=== PATIENT | male | born 1930 | race Caucasian/White ===

== ENCOUNTER 2016-08-25 14:31 | Inpatient (IN) | payer MEDICARE ==
[~2016-08-25] VITALS: Ht 188 cm; Wt 102.2 kg
--- NOTE | 2016-08-25 14:48 | EKG ---
[address] [address] Test Date: 2016-08-25 Test Time: 14:46:46 Pat Name: TANYA DELANEY Department: Room: Gender: M Director [employer]: : [id number] Requested By: KASANDRA HARRIS Order Number: [id number] Reading MD: Raymond Sandhu Measurements Intervals [place] Rate: 72 P: [place]: QRS: 31 QRSD: 80 T: 28 QT: 384 QTc: 422 Interpretive Statements SR NON-SPECIFIC ST/T CHANGES Electronically Signed On 09-02-2016 8:47:32 CDT by Raymond Sandhu
[2016-08-25 15:04] LABS: BASO # 0.2 x10^3/uL (0.0-0.2); BASO % 2 % (0-3); EOS # 0.6 x10^3/uL (0.0-0.7); EOS % 8 % (0-3); HEMATOCRIT 39.8 % (39.0-53.0); HEMOGLOBIN 13.2 g/dL (13.0-17.5); LYMPH # 2.1 x10^3/uL (1.0-4.8); LYMPH % 27 % (24-48); MEAN CORPUSCULAR HEMOGLOBIN 30 pg (25-35); MEAN CORPUSCULAR HGB CONC 33 g/dL (31-37); MEAN CORPUSCULAR VOLUME 89 fL (79-100); MONO # 0.8 x10^3/uL (0.0-1.1); MONO % 11 % (0-9); NEUT # 4.2 x10^3uL (1.8-7.7); NEUT % 53 % (31-73); PLATELET COUNT 173 x10^3/uL (140-400); RED BLOOD COUNT 4.48 x10^6/uL (4.30-5.70); RED CELL DISTRIBUTION WIDTH 14.6 % (11.5-14.5)
[2016-08-25 15:07] LABS: CALCIUM 8.7 mg/dL (8.5-10.1); CREATININE 1.2 mg/dL (0.7-1.3); GFR 57.5; POTASSIUM 4.2 mmol/L (3.5-5.1)
[2016-08-25 15:13] LABS: BACTERIA,URINE 0 /HPF (0-FEW); BILIRUBIN,URINE NEG (NEG); CLARITY,URINE CLEAR; COLOR,URINE YELLOW; GLUCOSE,URINE NEG (NEG); NITRITE,URINE NEG (NEG); RBC,URINE 0 /HPF (0-2); UROBILINOGEN,URINE 0.2 mg/dL (0.2 mg/dL); WBC,URINE RARE /HPF (0-4)
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
[2016-08-25 16:26] VITALS: BP 134/82
[2016-08-25] MEDS ORDERED: MAGN2400 PO (17:11)
[2016-08-25] MEDS ORDERED: MELA3TAB43 PO (17:11)
[2016-08-25] MEDS ORDERED: HYDR-2758 PO (17:11)
[2016-08-25] MEDS ORDERED: MEMA10TA PO (17:11)
[2016-08-25] MEDS ORDERED: ACET325T9 PO (17:11)
[2016-08-25] MEDS ORDERED: QUET25TA5 PO (17:11)
[2016-08-25] MEDS ORDERED: ASPI81TA50 PO (17:11)
[2016-08-25] MEDS ORDERED: LORA0.5T PO (17:11)
[2016-08-25] MEDS ORDERED: MAG HYDROX/AL HYDROX/SIMETH 30 ML ORAL.SUSP PO PRN (17:15)
[2016-08-25] MEDS ORDERED: METHYL SALICYLATE/MENTHOL TOPICAL OINTMENT 29GM TUBE. TP PRN (17:15)
[2016-08-25] MEDS ORDERED: ACETAMINOPHEN 325 MG TABLET PO PRN (18:15)
[2016-08-25] MEDS ORDERED: HYDROcodone/APAP 5/325MG 1 TAB TABLET PO PRN (18:15)
[2016-08-25] MEDS ORDERED: MAGNESIUM HYDROXIDE 2,400 MG/30 ML ORAL.SUSP. PO PRN (18:30)
--- NOTE | 2016-08-25 19:57 | PDOC ---
Exam Jesus Demential Exam: Jesus Note: Please also refer to the separate dictated note~for this date of service dictated separately.~Patient seen individually. Discussed the patient with Nursing staff reviewed the chart.~Reviewed interim history and current functioning. Reviewed vital signs,~Labs/ Radiology~and current medications noted below. Continue current treatment with the changes noted in the dictated addendum note Assessment: Vital Signs: Vital Signs Date Time Temp Pulse Resp B/P (MAP) Pulse Ox O2 Delivery O2 Flow Rate FiO2 08/25/16 16:26 97.6 93 18 134/82 (99) 97 Room Air Labs: Laboratory Tests Test 08/25/16 14:44 08/25/16 14:50 08/25/16 17:30 White Blood Count 8.0 x10^3/uL (4.0-11.0) Red Blood Count 4.48 x10^6/uL (4.30-5.70) Hemoglobin 13.2 g/dL (13.0-17.5) Hematocrit 39.8 % (39.0-53.0) Mean Corpuscular Volume 89 fL (79-100) Mean Corpuscular Hemoglobin 30 pg (25-35) Mean Corpuscular Hemoglobin Concent 33 g/dL (31-37) Red Cell Distribution Width 14.6 % (11.5-14.5) H Platelet Count 173 x10^3/uL (140-400) Neutrophils (%) (Auto) 53 % (31-73) Lymphocytes (%) (Auto) 27 % (24-48) Monocytes (%) (Auto) 11 % (0-9) H Eosinophils (%) (Auto) 8 % (0-3) H Basophils (%) (Auto) 2 % (0-3) Neutrophils # (Auto) 4.2 x10^3uL (1.8-7.7) Lymphocytes # (Auto) 2.1 x10^3/uL (1.0-4.8) Monocytes # (Auto) 0.8 x10^3/uL (0.0-1.1) Eosinophils # (Auto) 0.6 x10^3/uL (0.0-0.7) Basophils # (Auto) 0.2 x10^3/uL (0.0-0.2) Sodium Level 143 mmol/L (136-145) Potassium Level 4.2 mmol/L (3.5-5.1) Chloride Level 106 mmol/L (98-107) Carbon Dioxide Level 30 mmol/L (21-32) Anion Gap 7 (6-14) Blood Urea Nitrogen 18 mg/dL (8-26) Creatinine 1.2 mg/dL (0.7-1.3) Estimated GFR (Cockcroft-Gault) 57.5 Glucose Level 95 mg/dL (70-99) Calcium Level 8.7 mg/dL (8.5-10.1) Urine Collection Type Unknown Urine Color Yellow Urine Clarity Clear Urine pH 6.5 Urine Specific [place] 1.015 Urine Protein Neg (NEG-TRACE) Urine Glucose (UA) Neg mg/dL (NEG) Urine Ketones (Stick) Neg mg/dL (NEG) Urine Blood Neg (NEG) Urine Nitrite Neg (NEG) Urine Bilirubin Neg (NEG) Urine Urobilinogen Dipstick 0.2 mg/dL (0.2 mg/dL) Urine Leukocyte Esterase Neg (NEG) Urine RBC 0 /HPF (0-2) Urine WBC Rare /HPF (0-4) Urine Squamous Epithelial Cells None /LPF Urine Bacteria 0 /HPF (0-FEW) Urine Mucus Mod /LPF Magnesium Level 2.2 mg/dL (1.8-2.4) Current Medications: Meds: Current Medications Multi-Ingredient Ointment (Analgesic [place]) 1 sarah PRN QID PRN TP MUSCLE PAIN; Start 08/25/16 at 17:15 Al Hydroxide/Mg Hydroxide (Mylanta Plus Xs) 15 ml PRN AFTMEALHC PRN PO DYSPEPSIA; Start 08/25/16 at 17:15 Acetaminophen (Tylenol) 650 mg PRN Q4HRS PRN PO PAIN/FEVER; Start 08/25/16 at 18 :15 Aspirin (Aspirin Enteric Coated) 81 mg DAILY PO ; Start 08/26/16 at 09:00 Acetaminophen/ Hydrocodone Bitart (Lortab 5/325) 1 tab PRN Q6HRS PRN PO PAIN; Start 08/25/16 at 18:15 Lorazepam (Ativan) 0.5 mg PRN QID PRN PO ANXIETY / AGITATION; Start 08/25/16 at 18:15 Memantine (Namenda) 10 mg BID PO ; Start 08/25/16 at 21:00; Status UNV Memantine (Namenda) 10 mg BID PO ; Start 08/25/16 at 21:00 Quetiapine Fumarate (SEROquel) 25 mg HS PO ; Start 08/25/16 at 21:00 Magnesium Hydroxide (Milk Of Magnesia) 2,400 mg PRN QHS PRN PO CONSTIPATION; Start 08/25/16 at 18:30 Melatonin 3 mg QHS PO ; Start 08/25/16 at 21:00 Quetiapine Fumarate (SEROquel) 12.5 mg BID92 PO ; Start 08/26/16 at 09:00 Olanzapine (Zyprexa Zydis) 2.5 mg PRN Q2HR PRN PO PSYCHOSIS; Start 08/25/16 at 18:30 Active Scripts Active Reported Seroquel (Quetiapine Fumarate) 25 Mg Tablet 25 Mg PO HS Namenda (Memantine Hcl) 10 Mg Tablet 10 Mg PO BID Milk Of Magnesia (Magnesium Hydroxide) 2,400 Mg/10 Ml Oral.susp 2,400 Mg PO PRN QHS PRN Tylenol (Acetaminophen) 325 Mg Tablet 650 Mg PO PRN Q4HRS Namenda (Memantine Hcl) 10 Mg Tablet 10 Mg PO BID Melatonin 3 Mg Tab.rapdis 3 Mg PO HS Lorazepam 0.5 Mg Tablet 0.5 Mg PO PRN QID PRN Hydrocodone-Apap 5-325 (Hydrocodone Bit/Acetaminophen) 1 Each Tablet 1 Tab PO PRN Q6HRS PRN Aspir-Low (Aspirin) 81 Mg Tablet. 81 Mg PO DAILY Diagnosis: Problems: (1) Dementia with behavioral disturbance EFRAIN GOODEN MD August 25, 2016 19:57
[2016-08-25] MEDS: MEMANTINE 10 MG TABLET. PO SCH (20:45)
[2016-08-25] MEDS: MELATONIN 3 MG TABLET PO SCH (20:45)
[2016-08-25] MEDS: LORazepam 0.5 MG TABLET PO PRN (20:45)
[2016-08-25] MEDS: QUEtiapine 25 MG TABLET. PO SCH (20:46)
[2016-08-25] MEDS ORDERED: MEMANTINE 10 MG TABLET. PO SCH (21:00)
[2016-08-26 03:26] LABS: ALBUMIN 3.5 g/dL (3.4-5.0); DIRECT BILIRUBIN 0.1 mg/dL (0.0-0.2); TOTAL BILIRUBIN 0.4 mg/dL (0.2-1.0)
[2016-08-26 08:53] VITALS: BP 105/68
[2016-08-26] MEDS: ASPIRIN ENTERIC COATED 81 MG TABLET.DR. PO SCH (09:04)
[2016-08-26] MEDS: MEMANTINE 10 MG TABLET. PO SCH ×2 (09:04→20:41)
[2016-08-26] MEDS: QUEtiapine 25 MG TABLET. PO SCH ×3 (09:04→20:41)
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
[2016-08-26 16:02] LABS: THYROID STIM HORMONE (TSH) 4.688 uIU/mL (0.358-3.740)
[2016-08-26 16:17] VITALS: BP 114/72
[2016-08-26 17:08] LABS: T3 TOTAL 101 ng/dL (71-180); THYROXINE 5.7 ug/dL (4.5-12.0)
--- NOTE | 2016-08-26 20:15 | PDOC ---
Exam Jesus Demential Exam: Jesus Note: Please also refer to the separate dictated note~for this date of service dictated separately.~Patient seen individually. Discussed the patient with Nursing staff reviewed the chart.~Reviewed interim history and current functioning. Reviewed vital signs,~Labs/ Radiology~and current medications noted below. Continue current treatment with the changes noted in the dictated addendum note Assessment: Vital Signs: Vital Signs Date Time Temp Pulse Resp B/P (MAP) Pulse Ox O2 Delivery O2 Flow Rate FiO2 08/26/16 16:17 98.4 68 20 114/72 (86) 96 08/25/16 16:26 Room Air I&O Intake and Output 08/26/16 07:00 Intake Total 360 ml Balance 360 ml Intake Oral 360 ml Current Medications: Meds: Current Medications Multi-Ingredient Ointment (Analgesic [place]) 1 sarah PRN QID PRN TP MUSCLE PAIN; Start 08/25/16 at 17:15 Al Hydroxide/Mg Hydroxide (Mylanta Plus Xs) 15 ml PRN AFTMEALHC PRN PO DYSPEPSIA; Start 08/25/16 at 17:15 Acetaminophen (Tylenol) 650 mg PRN Q4HRS PRN PO PAIN/FEVER; Start 08/25/16 at 18 :15 Aspirin (Aspirin Enteric Coated) 81 mg DAILY PO Last administered on 08/26/16 09:04; Start 08/26/16 at 09:00 Acetaminophen/ Hydrocodone Bitart (Lortab 5/325) 1 tab PRN Q6HRS PRN PO PAIN; Start 08/25/16 at 18:15 Lorazepam (Ativan) 0.5 mg PRN QID PRN PO ANXIETY / AGITATION Last administered on 08/25/16 20:45; Start 08/25/16 at 18:15 Memantine (Namenda) 10 mg BID PO ; Start 08/25/16 at 21:00; Status UNV Memantine (Namenda) 10 mg BID PO Last administered on 08/26/16 09:04; Start 08/25/16 at 21:00 Quetiapine Fumarate (SEROquel) 25 mg HS PO Last administered on 08/25/16 20:46 ; Start 08/25/16 at 21:00 Magnesium Hydroxide (Milk Of Magnesia) 2,400 mg PRN QHS PRN PO CONSTIPATION Last administered on 08/25/16 20:49; Start 08/25/16 at 18:30 Melatonin 3 mg QHS PO Last administered on 08/25/16 20:45; Start 08/25/16 at 21: 00 Quetiapine Fumarate (SEROquel) 12.5 mg BID92 PO Last administered on 08/26/16 13:30; Start 08/26/16 at 09:00 Olanzapine (Zyprexa Zydis) 2.5 mg PRN Q2HR PRN PO PSYCHOSIS; Start 08/25/16 at 18:30 Sertraline HCl (Zoloft) 25 mg DAILY PO ; Start 08/27/16 at 09:00 Active Scripts Active Reported Seroquel (Quetiapine Fumarate) 25 Mg Tablet 25 Mg PO HS Namenda (Memantine Hcl) 10 Mg Tablet 10 Mg PO BID Milk Of Magnesia (Magnesium Hydroxide) 2,400 Mg/10 Ml Oral.susp 2,400 Mg PO PRN QHS PRN Tylenol (Acetaminophen) 325 Mg Tablet 650 Mg PO PRN Q4HRS Namenda (Memantine Hcl) 10 Mg Tablet 10 Mg PO BID Melatonin 3 Mg Tab.rapdis 3 Mg PO HS Lorazepam 0.5 Mg Tablet 0.5 Mg PO PRN QID PRN Hydrocodone-Apap 5-325 (Hydrocodone Bit/Acetaminophen) 1 Each Tablet 1 Tab PO PRN Q6HRS PRN Aspir-Low (Aspirin) 81 Mg Tablet.dr 81 Mg PO DAILY Diagnosis: Problems: (1) Dementia with behavioral disturbance (2) Anxiety disorder (3) 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
[2016-08-26] MEDS: MELATONIN 3 MG TABLET PO SCH (20:41)
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
[2016-08-27 02:31] LABS: HEMOGLOBIN A1C 5.4 % (4.8-5.6)
[2016-08-27 06:07] VITALS: BP 135/62
[2016-08-27] MEDS: MEMANTINE 10 MG TABLET. PO SCH ×2 (08:44→20:07)
[2016-08-27] MEDS: QUEtiapine 25 MG TABLET. PO SCH ×3 (08:44→20:08)
[2016-08-27] MEDS: ASPIRIN ENTERIC COATED 81 MG TABLET.DR. PO SCH (08:44)
[2016-08-27] MEDS ORDERED: SERTRALINE 25 MG TABLET. PO SCH (09:00)
[2016-08-27 14:55] VITALS: BP 123/75
[2016-08-27] MEDS: MELATONIN 3 MG TABLET PO SCH (20:07)
--- NOTE | 2016-08-27 21:13 | PDOC ---
Exam Jesus Demential Exam: Jesus Note: Please also refer to the separate dictated note~for this date of service dictated separately.~Patient seen individually. Discussed the patient with Nursing staff reviewed the chart.~Reviewed interim history and current functioning. Reviewed vital signs,~Labs/ Radiology~and current medications noted below. Continue current treatment with the changes noted in the dictated addendum note Assessment: Vital Signs: Vital Signs Date Time Temp Pulse Resp B/P (MAP) Pulse Ox O2 Delivery O2 Flow Rate FiO2 08/27/16 14:55 97.3 79 18 123/75 (91) 90 08/25/16 16:26 Room Air I&O Intake and Output 08/27/16 07:00 Intake Total 840 ml Balance 840 ml Intake Oral 840 ml # Bowel Movements 1 Current Medications: Meds: Current Medications Multi-Ingredient Ointment (Analgesic [place]) 1 sarah PRN QID PRN TP MUSCLE PAIN; Start 08/25/16 at 17:15 Al Hydroxide/Mg Hydroxide (Mylanta Plus Xs) 15 ml PRN AFTMEALHC PRN PO DYSPEPSIA; Start 08/25/16 at 17:15 Acetaminophen (Tylenol) 650 mg PRN Q4HRS PRN PO PAIN/FEVER; Start 08/25/16 at 18 :15 Aspirin (Aspirin Enteric Coated) 81 mg DAILY PO Last administered on 08/27/16 08:44; Start 08/26/16 at 09:00 Acetaminophen/ Hydrocodone Bitart (Lortab 5/325) 1 tab PRN Q6HRS PRN PO PAIN; Start 08/25/16 at 18:15 Lorazepam (Ativan) 0.5 mg PRN QID PRN PO ANXIETY / AGITATION Last administered on 08/25/16 20:45; Start 08/25/16 at 18:15 Memantine (Namenda) 10 mg BID PO ; Start 08/25/16 at 21:00; Status UNV Memantine (Namenda) 10 mg BID PO Last administered on 08/27/16 20:07; Start 08/25/16 at 21:00 Quetiapine Fumarate (SEROquel) 25 mg HS PO Last administered on 08/27/16 20:08 ; Start 08/25/16 at 21:00 Magnesium Hydroxide (Milk Of Magnesia) 2,400 mg PRN QHS PRN PO CONSTIPATION Last administered on 08/25/16 20:49; Start 08/25/16 at 18:30 Melatonin 3 mg QHS PO Last administered on 08/27/16 20:07; Start 08/25/16 at 21: 00 Quetiapine Fumarate (SEROquel) 12.5 mg BID92 PO Last administered on 08/27/16 13:00; Start 08/26/16 at 09:00 Olanzapine (Zyprexa Zydis) 2.5 mg PRN Q2HR PRN PO PSYCHOSIS; Start 08/25/16 at 18:30 Sertraline HCl (Zoloft) 25 mg DAILY PO Last administered on 08/27/16 08:45; Start 08/27/16 at 09:00; Stop 08/27/16 at 18:17; Status DC Sertraline HCl (Zoloft) 50 mg DAILY PO ; Start 08/28/16 at 09:00 Active Scripts Active Reported Seroquel (Quetiapine Fumarate) 25 Mg Tablet 25 Mg PO HS Namenda (Memantine Hcl) 10 Mg Tablet 10 Mg PO BID Milk Of Magnesia (Magnesium Hydroxide) 2,400 Mg/10 Ml Oral.susp 2,400 Mg PO PRN QHS PRN Tylenol (Acetaminophen) 325 Mg Tablet 650 Mg PO PRN Q4HRS Namenda (Memantine Hcl) 10 Mg Tablet 10 Mg PO BID Melatonin 3 Mg Tab.rapdis 3 Mg PO HS Lorazepam 0.5 Mg Tablet 0.5 Mg PO PRN QID PRN Hydrocodone-Apap 5-325 (Hydrocodone Bit/Acetaminophen) 1 Each Tablet 1 Tab PO PRN Q6HRS PRN Aspir-Low (Aspirin) 81 Mg Tablet.dr 81 Mg PO DAILY Diagnosis: Problems: (1) Dementia with behavioral disturbance (2) Anxiety disorder (3) Dementia in Alzheimer's disease with delusions (4) Dementia in Alzheimer's disease with depression (5) Dementia, vascular, with delusions (6) Dementia, vascular, with depression (7) Impulse control disorder EFRAIN GOODEN MD August 27, 2016 21:13
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
[2016-08-28 07:05] VITALS: BP 117/58
[2016-08-28] MEDS: QUEtiapine 25 MG TABLET. PO SCH ×4 (08:42→19:43)
[2016-08-28] MEDS: MEMANTINE 10 MG TABLET. PO SCH ×2 (08:42→19:43)
[2016-08-28] MEDS: ASPIRIN ENTERIC COATED 81 MG TABLET.DR. PO SCH (08:42)
[2016-08-28] MEDS: SERTRALINE 50 MG TABLET. PO SCH (08:44)
[2016-08-28 15:58] VITALS: BP 138/69
[2016-08-28] MEDS: MELATONIN 3 MG TABLET PO SCH (19:43)
--- NOTE | 2016-08-28 22:05 | PDOC ---
Exam Jesus Demential Exam: Jesus Note: Please also refer to the separate dictated note~for this date of service dictated separately.~Patient seen individually. Discussed the patient with Nursing staff reviewed the chart.~Reviewed interim history and current functioning. Reviewed vital signs,~Labs/ Radiology~and current medications noted below. Continue current treatment with the changes noted in the dictated addendum note Assessment: Vital Signs: Vital Signs Date Time Temp Pulse Resp B/P (MAP) Pulse Ox O2 Delivery O2 Flow Rate FiO2 08/28/16 15:58 98.1 65 20 138/69 (92) 95 08/25/16 16:26 Room Air I&O Intake and Output 08/28/16 07:00 Intake Total 1320 ml Balance 1320 ml Intake Oral 1320 ml Current Medications: Meds: Current Medications Multi-Ingredient Ointment (Analgesic [place]) 1 sarah PRN QID PRN TP MUSCLE PAIN; Start 08/25/16 at 17:15 Al Hydroxide/Mg Hydroxide (Mylanta Plus Xs) 15 ml PRN AFTMEALHC PRN PO DYSPEPSIA; Start 08/25/16 at 17:15 Acetaminophen (Tylenol) 650 mg PRN Q4HRS PRN PO PAIN/FEVER; Start 08/25/16 at 18 :15 Aspirin (Aspirin Enteric Coated) 81 mg DAILY PO Last administered on 08/28/16 08:42; Start 08/26/16 at 09:00 Acetaminophen/ Hydrocodone Bitart (Lortab 5/325) 1 tab PRN Q6HRS PRN PO PAIN; Start 08/25/16 at 18:15 Lorazepam (Ativan) 0.5 mg PRN QID PRN PO ANXIETY / AGITATION Last administered on 08/25/16 20:45; Start 08/25/16 at 18:15 Memantine (Namenda) 10 mg BID PO ; Start 08/25/16 at 21:00; Status UNV Memantine (Namenda) 10 mg BID PO Last administered on 08/28/16 19:43; Start at 21:00 Quetiapine Fumarate (SEROquel) 25 mg HS PO Last administered on 08/28/16 19:43 ; Start 08/25/16 at 21:00 Magnesium Hydroxide (Milk Of Magnesia) 2,400 mg PRN QHS PRN PO CONSTIPATION Last administered on 08/25/16 20:49; Start 08/25/16 at 18:30 Melatonin 3 mg QHS PO Last administered on 08/28/16 19:43; Start 08/25/16 at 21 :00 Quetiapine Fumarate (SEROquel) 12.5 mg BID92 PO Last administered on 08/28/16 14:05; Start 08/26/16 at 09:00; Stop 08/28/16 at 18:34; Status DC Olanzapine (Zyprexa Zydis) 2.5 mg PRN Q2HR PRN PO PSYCHOSIS; Start 08/25/16 at 18:30 Sertraline HCl (Zoloft) 25 mg DAILY PO Last administered on 08/27/16 08:45; Start 08/27/16 at 09:00; Stop 08/27/16 at 18:17; Status DC Sertraline HCl (Zoloft) 50 mg DAILY PO Last administered on 08/28/16 08:44; Start 08/28/16 at 09:00 Quetiapine Fumarate (SEROquel) 12.5 mg TID PO Last administered on 08/28/16 19 :43; Start 08/28/16 at 21:00 Active Scripts Active Reported Seroquel (Quetiapine Fumarate) 25 Mg Tablet 25 Mg PO HS Namenda (Memantine Hcl) 10 Mg Tablet 10 Mg PO BID Milk Of Magnesia (Magnesium Hydroxide) 2,400 Mg/10 Ml Oral.susp 2,400 Mg PO PRN QHS PRN Tylenol (Acetaminophen) 325 Mg Tablet 650 Mg PO PRN Q4HRS Namenda (Memantine Hcl) 10 Mg Tablet 10 Mg PO BID Melatonin 3 Mg Tab.rapdis 3 Mg PO HS Lorazepam 0.5 Mg Tablet 0.5 Mg PO PRN QID PRN Hydrocodone-Apap 5-325 (Hydrocodone Bit/Acetaminophen) 1 Each Tablet 1 Tab PO PRN Q6HRS PRN Aspir-Low (Aspirin) 81 Mg Tablet. 81 Mg PO DAILY EFRAIN GOODEN MD August 28, 2016 22:05
[2016-08-29 06:34] VITALS: BP 112/55
[2016-08-29] MEDS: SERTRALINE 50 MG TABLET. PO SCH (08:50)
[2016-08-29] MEDS: MEMANTINE 10 MG TABLET. PO SCH ×2 (08:50→19:26)
[2016-08-29] MEDS: ASPIRIN ENTERIC COATED 81 MG TABLET.DR. PO SCH (08:50)
[2016-08-29] MEDS: QUEtiapine 25 MG TABLET. PO SCH ×4 (08:51→19:27)
--- NOTE | 2016-08-29 09:41 | PN ---
DATE: 08/27/2016 PSYCHIATRIC PROGRESS NOTE This is a late entry 08/27/2016, covers elements not covered in my initial note. SUBJECTIVE: The patient was agitated once per nursing report, pushing aggressively towards another patient, he has been doing better after that. REVIEW OF SYSTEMS: No CV, , pulmonary, eye, ENT system symptoms on review. Reliability poor. MENTAL STATUS EXAM: Oriented to himself. Insight, judgment, recent and remote memory, attention, concentration, fund of knowledge poor, consistent with his diagnosis mentioned in my initial note. LABORATORY DATA: Reviewed. PLAN: Increase Zoloft to 50 mg a day. Continue Namenda, Seroquel, melatonin, along with Zyprexa p.r.n. and Ativan p.r.n. Adjust as clinically indicated. MAN Sidnhu GOODEN MD DR: NOLA/juan f JOB#: [id number] / [id number]
[2016-08-29 16:22] VITALS: BP 115/60
[2016-08-29] MEDS: MELATONIN 3 MG TABLET PO SCH (19:26)
--- NOTE | 2016-08-29 21:08 | PDOC ---
Exam Jesus Demential Exam: Jesus Note: Please also refer to the separate dictated note~for this date of service dictated separately.~Patient seen individually. Discussed the patient with Nursing staff reviewed the chart.~Reviewed interim history and current functioning. Reviewed vital signs,~Labs/ Radiology~and current medications noted below. Continue current treatment with the changes noted in the dictated addendum note Assessment: Vital Signs: Vital Signs Date Time Temp Pulse Resp B/P (MAP) Pulse Ox O2 Delivery O2 Flow Rate FiO2 08/29/16 16:22 97.4 62 19 115/60 (78) 97 08/25/16 16:26 Room Air I&O Intake and Output 08/29/16 07:00 Intake Total 1200 ml Balance 1200 ml Intake Oral 1200 ml Current Medications: Meds: Current Medications Multi-Ingredient Ointment (Analgesic [place]) 1 sarah PRN QID PRN TP MUSCLE PAIN; Start 08/25/16 at 17:15 Al Hydroxide/Mg Hydroxide (Mylanta Plus Xs) 15 ml PRN AFTMEALHC PRN PO DYSPEPSIA; Start 08/25/16 at 17:15 Acetaminophen (Tylenol) 650 mg PRN Q4HRS PRN PO PAIN/FEVER; Start 08/25/16 at 18 :15 Aspirin (Aspirin Enteric Coated) 81 mg DAILY PO Last administered on 08/29/16 08:50; Start 08/26/16 at 09:00 Acetaminophen/ Hydrocodone Bitart (Lortab 5/325) 1 tab PRN Q6HRS PRN PO PAIN; Start 08/25/16 at 18:15 Lorazepam (Ativan) 0.5 mg PRN QID PRN PO ANXIETY / AGITATION Last administered on 08/25/16 20:45; Start 08/25/16 at 18:15 Memantine (Namenda) 10 mg BID PO ; Start 08/25/16 at 21:00; Status UNV Memantine (Namenda) 10 mg BID PO Last administered on 08/29/16 19:26; Start at 21:00 Quetiapine Fumarate (SEROquel) 25 mg HS PO Last administered on 08/29/16 19:26 ; Start 08/25/16 at 21:00 Magnesium Hydroxide (Milk Of Magnesia) 2,400 mg PRN QHS PRN PO CONSTIPATION Last administered on 08/25/16 20:49; Start 08/25/16 at 18:30 Melatonin 3 mg QHS PO Last administered on 08/29/16 19:26; Start 08/25/16 at 21 :00 Quetiapine Fumarate (SEROquel) 12.5 mg BID92 PO Last administered on 08/28/16 14:05; Start 08/26/16 at 09:00; Stop 08/28/16 at 18:34; Status DC Olanzapine (Zyprexa Zydis) 2.5 mg PRN Q2HR PRN PO PSYCHOSIS; Start 08/25/16 at 18:30 Sertraline HCl (Zoloft) 25 mg DAILY PO Last administered on 08/27/16 08:45; Start 08/27/16 at 09:00; Stop 08/27/16 at 18:17; Status DC Sertraline HCl (Zoloft) 50 mg DAILY PO Last administered on 08/29/16 08:50; Start 08/28/16 at 09:00 Quetiapine Fumarate (SEROquel) 12.5 mg TID PO Last administered on 08/29/16 19 :27; Start 08/28/16 at 21:00 Active Scripts Active Reported Seroquel (Quetiapine Fumarate) 25 Mg Tablet 25 Mg PO HS Namenda (Memantine Hcl) 10 Mg Tablet 10 Mg PO BID Milk Of Magnesia (Magnesium Hydroxide) 2,400 Mg/10 Ml Oral.susp 2,400 Mg PO PRN QHS PRN Tylenol (Acetaminophen) 325 Mg Tablet 650 Mg PO PRN Q4HRS Namenda (Memantine Hcl) 10 Mg Tablet 10 Mg PO BID Melatonin 3 Mg Tab.rapdis 3 Mg PO HS Lorazepam 0.5 Mg Tablet 0.5 Mg PO PRN QID PRN Hydrocodone-Apap 5-325 (Hydrocodone Bit/Acetaminophen) 1 Each Tablet 1 Tab PO PRN Q6HRS PRN Aspir-Low (Aspirin) 81 Mg Tablet. 81 Mg PO DAILY EFRAIN GOODEN MD August 29, 2016 21:08
[2016-08-30 06:45] VITALS: BP 134/86
[2016-08-30] MEDS: MEMANTINE 10 MG TABLET. PO SCH ×2 (09:09→21:12)
[2016-08-30] MEDS: ASPIRIN ENTERIC COATED 81 MG TABLET.DR. PO SCH (09:09)
[2016-08-30] MEDS: QUEtiapine 25 MG TABLET. PO SCH ×4 (09:09→21:14)
[2016-08-30] MEDS: SERTRALINE 50 MG TABLET. PO SCH (09:09)
[2016-08-30 15:39] VITALS: BP 149/83
--- NOTE | 2016-08-30 21:09 | PDOC ---
Exam Jesus Demential Exam: Jesus Note: Please also refer to the separate dictated note~for this date of service dictated separately.~Patient seen individually. Discussed the patient with Nursing staff reviewed the chart.~Reviewed interim history and current functioning. Reviewed vital signs,~Labs/ Radiology~and current medications noted below. Continue current treatment with the changes noted in the dictated addendum note Assessment: Vital Signs: Vital Signs Date Time Temp Pulse Resp B/P (MAP) Pulse Ox O2 Delivery O2 Flow Rate FiO2 08/30/16 18:48 99 08/30/16 15:39 97.4 61 18 149/83 (105) 08/25/16 16:26 Room Air I&O Intake and Output 08/30/16 07:00 Intake Total 1080 ml Balance 1080 ml Intake Oral 1080 ml # Voids 2 Current Medications: Meds: Current Medications Multi-Ingredient Ointment (Analgesic [place]) 1 sarah PRN QID PRN TP MUSCLE PAIN; Start 08/25/16 at 17:15 Al Hydroxide/Mg Hydroxide (Mylanta Plus Xs) 15 ml PRN AFTMEALHC PRN PO DYSPEPSIA; Start 08/25/16 at 17:15 Acetaminophen (Tylenol) 650 mg PRN Q4HRS PRN PO PAIN/FEVER; Start 08/25/16 at 18 :15 Aspirin (Aspirin Enteric Coated) 81 mg DAILY PO Last administered on 08/30/16 09:09; Start 08/26/16 at 09:00 Acetaminophen/ Hydrocodone Bitart (Lortab 5/325) 1 tab PRN Q6HRS PRN PO PAIN Last administered on 08/30/16 17:34; Start 08/25/16 at 18:15 Lorazepam (Ativan) 0.5 mg PRN QID PRN PO ANXIETY / AGITATION Last administered on 08/25/16 20:45; Start 08/25/16 at 18:15 Memantine (Namenda) 10 mg BID PO ; Start 08/25/16 at 21:00; Status UNV Memantine (Namenda) 10 mg BID PO Last administered on 08/30/16 09:09; Start at 21:00 Quetiapine Fumarate (SEROquel) 25 mg HS PO Last administered on 08/29/16 19:26 ; Start 08/25/16 at 21:00 Magnesium Hydroxide (Milk Of Magnesia) 2,400 mg PRN QHS PRN PO CONSTIPATION Last administered on 08/25/16 20:49; Start 08/25/16 at 18:30 Melatonin 3 mg QHS PO Last administered on 08/29/16 19:26; Start 08/25/16 at 21 :00 Quetiapine Fumarate (SEROquel) 12.5 mg BID92 PO Last administered on 08/28/16 14:05; Start 08/26/16 at 09:00; Stop 08/28/16 at 18:34; Status DC Olanzapine (Zyprexa Zydis) 2.5 mg PRN Q2HR PRN PO PSYCHOSIS; Start 08/25/16 at 18:30 Sertraline HCl (Zoloft) 25 mg DAILY PO Last administered on 08/27/16 08:45; Start 08/27/16 at 09:00; Stop 08/27/16 at 18:17; Status DC Sertraline HCl (Zoloft) 50 mg DAILY PO Last administered on 08/30/16 09:09; Start 08/28/16 at 09:00 Quetiapine Fumarate (SEROquel) 12.5 mg TID PO Last administered on 08/30/16 14 :23; Start 08/28/16 at 21:00 Vitamin D (Vitamin D3) 50,000 unit WEEKLY PO ; Start 08/31/16 at 09:00 Active Scripts Active Reported Seroquel (Quetiapine Fumarate) 25 Mg Tablet 25 Mg PO HS Namenda (Memantine Hcl) 10 Mg Tablet 10 Mg PO BID Milk Of Magnesia (Magnesium Hydroxide) 2,400 Mg/10 Ml Oral.susp 2,400 Mg PO PRN QHS PRN Tylenol (Acetaminophen) 325 Mg Tablet 650 Mg PO PRN Q4HRS Namenda (Memantine Hcl) 10 Mg Tablet 10 Mg PO BID Melatonin 3 Mg Tab.rapdis 3 Mg PO HS Lorazepam 0.5 Mg Tablet 0.5 Mg PO PRN QID PRN Hydrocodone-Apap 5-325 (Hydrocodone Bit/Acetaminophen) 1 Each Tablet 1 Tab PO PRN Q6HRS PRN Aspir-Low (Aspirin) 81 Mg Tablet. 81 Mg PO DAILY EFRAIN GOODEN MD August 30, 2016 21:09
[2016-08-30] MEDS: MELATONIN 3 MG TABLET PO SCH (21:13)
[2016-08-31 06:28] VITALS: BP 128/69
[2016-08-31 07:14] LABS: BASO # 0.1 x10^3/uL (0.0-0.2); BASO % 1 % (0-3); EOS # 0.5 x10^3/uL (0.0-0.7); EOS % 7 % (0-3); HEMATOCRIT 40.6 % (39.0-53.0); HEMOGLOBIN 13.3 g/dL (13.0-17.5); LYMPH # 2.2 x10^3/uL (1.0-4.8); LYMPH % 29 % (24-48); MEAN CORPUSCULAR HEMOGLOBIN 29 pg (25-35); MEAN CORPUSCULAR HGB CONC 33 g/dL (31-37); MEAN CORPUSCULAR VOLUME 89 fL (79-100); MONO # 0.7 x10^3/uL (0.0-1.1); MONO % 10 % (0-9); NEUT # 4.1 x10^3uL (1.8-7.7); NEUT % 54 % (31-73); PLATELET COUNT 158 x10^3/uL (140-400); RED BLOOD COUNT 4.58 x10^6/uL (4.30-5.70); RED CELL DISTRIBUTION WIDTH 14.6 % (11.5-14.5); WHITE BLOOD COUNT 7.6 x10^3/uL (4.0-11.0)
[2016-08-31 07:43] LABS: ALBUMIN 3.6 g/dL (3.4-5.0); CALCIUM 8.8 mg/dL (8.5-10.1); CREATININE 1.1 mg/dL (0.7-1.3); GFR 63.6; MAGNESIUM 2.3 mg/dL (1.8-2.4); POTASSIUM 4.3 mmol/L (3.5-5.1); TOTAL BILIRUBIN 0.5 mg/dL (0.2-1.0); TOTAL PROTEIN 7.3 g/dL (6.4-8.2)
[2016-08-31] MEDS: ASPIRIN ENTERIC COATED 81 MG TABLET.DR. PO SCH (08:58)
[2016-08-31] MEDS: MEMANTINE 10 MG TABLET. PO SCH ×2 (08:58→21:23)
[2016-08-31] MEDS: QUEtiapine 25 MG TABLET. PO SCH ×4 (08:58→21:39)
[2016-08-31] MEDS: SERTRALINE 50 MG TABLET. PO SCH (08:58)
[2016-08-31] MEDS: CHOLECALCIFEROL (VITAMIN D3) 50,000 UNIT CAPSULE PO SCH (08:59)
--- NOTE | 2016-08-31 09:01 | PN ---
DATE: 08/28/2016 PSYCHIATRIC PROGRESS NOTE This is a late entry for 08/28/2016, cover elements not covered in my initial note. SUBJECTIVE: The patient remains confused, has been quiet, at times agitated with peers if he does have personal space. REVIEW OF SYSTEMS: No CV, , pulmonary, eye, ENT system symptoms on review. Reliability poor. MENTAL STATUS EXAM: Oriented to himself. Insight, judgment, recent and remote memory, attention, concentration, fund of knowledge poor, consistent with his diagnosis mentioned in my initial note. PLAN: Continue psychotropics mentioned in my initial note except increase the Seroquel from 12.5 mg b.i.d. to 12.5 mg t.i.d. Adjust further as clinically indicated. MAN Sindhu GOODEN MD DR: NOLA/juan f JOB#: [id number] / [id number]
--- NOTE | 2016-08-31 09:07 | PN ---
DATE: 08/29/2016 PSYCHIATRIC PROGRESS NOTE This is late entry of 08/29/2016, covers elements not covered in my initial note. SUBJECTIVE: The patient was staffed at treatment team meeting with the entire team and the patient's daughter, Grisel attended. I met with the patient individually as well, reviewed his history at length, diagnosis, current medications, progress. Sleeping about 6 hours. Appetite 100%. No CV, , pulmonary, eye, ENT system symptoms on review. Reviewed his history where he gets extremely agitated. 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 REVIEW OF SYSTEMS: No CV, , pulmonary, eye, ENT system symptoms on review. Reliability poor. MENTAL STATUS EXAMINATION: Oriented to himself. Insight, judgment, recent and remote memory, attention, concentration, fund of knowledge poor, consistent with his diagnosis mentioned in my initial note. PLAN: Continue Namenda 10 b.i.d., Seroquel 12.5 t.i.d., melatonin 3 mg at bedtime, Seroquel 25 at bedtime, Ativan p.r.n., Zyprexa p.r.n., Zoloft 50 mg a day, may need to be increased in due course. MAN Sindhu GOODEN MD DR: NOLA/juan f JOB#: [id number] / [id number]
[2016-08-31] MEDS ORDERED: CHOL500021 PO (11:49)
[2016-08-31 16:08] VITALS: BP 130/84
--- NOTE | 2016-08-31 20:56 | PDOC ---
Exam Jesus Demential Exam: Jesus Note: Please also refer to the separate dictated note~for this date of service dictated separately.~Patient seen individually. Discussed the patient with Nursing staff reviewed the chart.~Reviewed interim history and current functioning. Reviewed vital signs,~Labs/ Radiology~and current medications noted below. Continue current treatment with the changes noted in the dictated addendum note Assessment: Vital Signs: Vital Signs Date Time Temp Pulse Resp B/P (MAP) Pulse Ox O2 Delivery O2 Flow Rate FiO2 08/31/16 16:08 97.7 69 18 130/84 (99) 96 08/25/16 16:26 Room Air I&O Intake and Output 08/31/16 07:00 Intake Total 960 ml Balance 960 ml Intake Oral 960 ml # Voids 1 Labs: Laboratory Tests Test 08/31/16 06:48 White Blood Count 7.6 x10^3/uL (4.0-11.0) Red Blood Count 4.58 x10^6/uL (4.30-5.70) Hemoglobin 13.3 g/dL (13.0-17.5) Hematocrit 40.6 % (39.0-53.0) Mean Corpuscular Volume 89 fL (79-100) Mean Corpuscular Hemoglobin 29 pg (25-35) Mean Corpuscular Hemoglobin Concent 33 g/dL (31-37) Red Cell Distribution Width 14.6 % (11.5-14.5) H Platelet Count 158 x10^3/uL (140-400) Neutrophils (%) (Auto) 54 % (31-73) Lymphocytes (%) (Auto) 29 % (24-48) Monocytes (%) (Auto) 10 % (0-9) H Eosinophils (%) (Auto) 7 % (0-3) H Basophils (%) (Auto) 1 % (0-3) Neutrophils # (Auto) 4.1 x10^3uL (1.8-7.7) Lymphocytes # (Auto) 2.2 x10^3/uL (1.0-4.8) Monocytes # (Auto) 0.7 x10^3/uL (0.0-1.1) Eosinophils # (Auto) 0.5 x10^3/uL (0.0-0.7) Basophils # (Auto) 0.1 x10^3/uL (0.0-0.2) Sodium Level 145 mmol/L (136-145) Potassium Level 4.3 mmol/L (3.5-5.1) Chloride Level 107 mmol/L (98-107) Carbon Dioxide Level 27 mmol/L (21-32) Anion Gap 11 (6-14) Blood Urea Nitrogen 19 mg/dL (8-26) Creatinine 1.1 mg/dL (0.7-1.3) Estimated GFR (Cockcroft-Gault) 63.6 BUN/Creatinine Ratio 17 (6-20) Glucose Level 91 mg/dL (70-99) Calcium Level 8.8 mg/dL (8.5-10.1) Magnesium Level 2.3 mg/dL (1.8-2.4) Total Bilirubin 0.5 mg/dL (0.2-1.0) Aspartate Amino Transferase (AST) 19 U/L (15-37) Alanine Aminotransferase (ALT) 17 U/L (16-63) Alkaline Phosphatase 73 U/L (46-116) Total Protein 7.3 g/dL (6.4-8.2) Albumin 3.6 g/dL (3.4-5.0) Albumin/Globulin Ratio 1.0 (1.0-1.7) Current Medications: Meds: Current Medications Multi-Ingredient Ointment (Analgesic [place]) 1 sarah PRN QID PRN TP MUSCLE PAIN; Start 08/25/16 at 17:15 Al Hydroxide/Mg Hydroxide (Mylanta Plus Xs) 15 ml PRN AFTMEALHC PRN PO DYSPEPSIA; Start 08/25/16 at 17:15 Acetaminophen (Tylenol) 650 mg PRN Q4HRS PRN PO PAIN/FEVER; Start 08/25/16 at 18 :15 Aspirin (Aspirin Enteric Coated) 81 mg DAILY PO Last administered on 08/31/16 08:58; Start 08/26/16 at 09:00 Acetaminophen/ Hydrocodone Bitart (Lortab 5/325) 1 tab PRN Q6HRS PRN PO PAIN Last administered on 08/30/16 17:34; Start 08/25/16 at 18:15 Lorazepam (Ativan) 0.5 mg PRN QID PRN PO ANXIETY / AGITATION Last administered on 08/25/16 20:45; Start 08/25/16 at 18:15 Memantine (Namenda) 10 mg BID PO ; Start 08/25/16 at 21:00; Status UNV Memantine (Namenda) 10 mg BID PO Last administered on 08/31/16 08:58; Start at 21:00 Quetiapine Fumarate (SEROquel) 25 mg HS PO Last administered on 08/30/16 21:13 ; Start 08/25/16 at 21:00 Magnesium Hydroxide (Milk Of Magnesia) 2,400 mg PRN QHS PRN PO CONSTIPATION Last administered on 08/25/16 20:49; Start 08/25/16 at 18:30 Melatonin 3 mg QHS PO Last administered on 08/30/16 21:13; Start 08/25/16 at 21 :00 Quetiapine Fumarate (SEROquel) 12.5 mg BID92 PO Last administered on 08/28/16 14:05; Start 08/26/16 at 09:00; Stop 08/28/16 at 18:34; Status DC Olanzapine (Zyprexa Zydis) 2.5 mg PRN Q2HR PRN PO PSYCHOSIS; Start 08/25/16 at 18:30 Sertraline HCl (Zoloft) 25 mg DAILY PO Last administered on 08/27/16 08:45; Start 08/27/16 at 09:00; Stop 08/27/16 at 18:17; Status DC Sertraline HCl (Zoloft) 50 mg DAILY PO Last administered on 08/31/16 08:58; Start 08/28/16 at 09:00 Quetiapine Fumarate (SEROquel) 12.5 mg TID PO Last administered on 08/31/16 13 :41; Start 08/28/16 at 21:00 Vitamin D (Vitamin D3) 50,000 unit WEEKLY PO Last administered on 08/31/16 08: 59; Start 08/31/16 at 09:00 Active Scripts Active Reported Seroquel (Quetiapine Fumarate) 25 Mg Tablet 25 Mg PO HS Namenda (Memantine Hcl) 10 Mg Tablet 10 Mg PO BID Milk Of Magnesia (Magnesium Hydroxide) 2,400 Mg/10 Ml Oral.susp 2,400 Mg PO PRN QHS PRN Tylenol (Acetaminophen) 325 Mg Tablet 650 Mg PO PRN Q4HRS Namenda (Memantine Hcl) 10 Mg Tablet 10 Mg PO BID Melatonin 3 Mg Tab.rapdis 3 Mg PO HS Lorazepam 0.5 Mg Tablet 0.5 Mg PO PRN QID PRN Hydrocodone-Apap 5-325 (Hydrocodone Bit/Acetaminophen) 1 Each Tablet 1 Tab PO PRN Q6HRS PRN Aspir-Low (Aspirin) 81 Mg Tablet.dr 81 Mg PO DAILY Diagnosis: Problems: (1) Dementia with behavioral disturbance (2) Anxiety disorder (3) Dementia in Alzheimer's disease with delusions (4) Dementia in Alzheimer's disease with depression (5) Dementia, vascular, with delusions (6) Dementia, vascular, with depression (7) Impulse control disorder EFRAIN GOODEN MD August 31, 2016 20:56
[2016-08-31] MEDS: MELATONIN 3 MG TABLET PO SCH (21:23)
[2016-09-01 06:36] VITALS: BP 134/74
[2016-09-01] MEDS: ASPIRIN ENTERIC COATED 81 MG TABLET.DR. PO SCH (09:56)
[2016-09-01] MEDS: QUEtiapine 25 MG TABLET. PO SCH ×4 (09:56→21:49)
[2016-09-01] MEDS: MEMANTINE 10 MG TABLET. PO SCH ×2 (09:56→21:33)
[2016-09-01 16:23] VITALS: BP 109/65
--- NOTE | 2016-09-01 20:15 | PDOC ---
Exam Jesus Demential Exam: Jesus Note: Please also refer to the separate dictated note~for this date of service dictated separately.~Patient seen individually. Discussed the patient with Nursing staff reviewed the chart.~Reviewed interim history and current functioning. Reviewed vital signs,~Labs/ Radiology~and current medications noted below. Continue current treatment with the changes noted in the dictated addendum note Assessment: Vital Signs: Vital Signs Date Time Temp Pulse Resp B/P (MAP) Pulse Ox O2 Delivery O2 Flow Rate FiO2 09/01/16 16:23 98.2 68 20 109/65 (80) 95 I&O Intake and Output 09/01/16 07:00 Intake Total 1440 ml Balance 1440 ml Intake Oral 1440 ml # Voids 1 Current Medications: Meds: Current Medications Multi-Ingredient Ointment (Analgesic [place]) 1 sarah PRN QID PRN TP MUSCLE PAIN; Start 08/25/16 at 17:15 Al Hydroxide/Mg Hydroxide (Mylanta Plus Xs) 15 ml PRN AFTMEALHC PRN PO DYSPEPSIA; Start 08/25/16 at 17:15 Acetaminophen (Tylenol) 650 mg PRN Q4HRS PRN PO PAIN/FEVER; Start 08/25/16 at 18 :15 Aspirin (Aspirin Enteric Coated) 81 mg DAILY PO Last administered on 09/01/16 09:56; Start 08/26/16 at 09:00 Acetaminophen/ Hydrocodone Bitart (Lortab 5/325) 1 tab PRN Q6HRS PRN PO PAIN Last administered on 08/30/16 17:34; Start 08/25/16 at 18:15 Lorazepam (Ativan) 0.5 mg PRN QID PRN PO ANXIETY / AGITATION Last administered on 08/25/16 20:45; Start 08/25/16 at 18:15 Memantine (Namenda) 10 mg BID PO ; Start 08/25/16 at 21:00; Status UNV Memantine (Namenda) 10 mg BID PO Last administered on 09/01/16 09:56; Start at 21:00 Quetiapine Fumarate (SEROquel) 25 mg HS PO Last administered on 08/31/16 21:23 ; Start 08/25/16 at 21:00 Magnesium Hydroxide (Milk Of Magnesia) 2,400 mg PRN QHS PRN PO CONSTIPATION Last administered on 08/25/16 20:49; Start 08/25/16 at 18:30 Melatonin 3 mg QHS PO Last administered on 08/31/16 21:23; Start 08/25/16 at 21 :00 Quetiapine Fumarate (SEROquel) 12.5 mg BID92 PO Last administered on 08/28/16 14:05; Start 08/26/16 at 09:00; Stop 08/28/16 at 18:34; Status DC Olanzapine (Zyprexa Zydis) 2.5 mg PRN Q2HR PRN PO PSYCHOSIS; Start 08/25/16 at 18:30 Sertraline HCl (Zoloft) 25 mg DAILY PO Last administered on 08/27/16 08:45; Start 08/27/16 at 09:00; Stop 08/27/16 at 18:17; Status DC Sertraline HCl (Zoloft) 50 mg DAILY PO Last administered on 08/31/16 08:58; Start 08/28/16 at 09:00; Stop 09/01/16 at 09:57; Status DC Quetiapine Fumarate (SEROquel) 12.5 mg TID PO Last administered on 09/01/16 14 :00; Start 08/28/16 at 21:00 Vitamin D (Vitamin D3) 50,000 unit WEEKLY PO Last administered on 08/31/16 08: 59; Start 08/31/16 at 09:00 Sertraline HCl (Zoloft) 75 mg DAILY PO ; Start 09/02/16 at 09:00 Active Scripts Active Reported Seroquel (Quetiapine Fumarate) 25 Mg Tablet 25 Mg PO HS Namenda (Memantine Hcl) 10 Mg Tablet 10 Mg PO BID Milk Of Magnesia (Magnesium Hydroxide) 2,400 Mg/10 Ml Oral.susp 2,400 Mg PO PRN QHS PRN Tylenol (Acetaminophen) 325 Mg Tablet 650 Mg PO PRN Q4HRS Namenda (Memantine Hcl) 10 Mg Tablet 10 Mg PO BID Melatonin 3 Mg Tab.rapdis 3 Mg PO HS Lorazepam 0.5 Mg Tablet 0.5 Mg PO PRN QID PRN Hydrocodone-Apap 5-325 (Hydrocodone Bit/Acetaminophen) 1 Each Tablet 1 Tab PO PRN Q6HRS PRN Aspir-Low (Aspirin) 81 Mg Tablet. 81 Mg PO DAILY EFRAIN GOODEN MD September 01, 2016 20:14
[2016-09-01] MEDS: MELATONIN 3 MG TABLET PO SCH (21:33)
[2016-09-01] MEDS: LORazepam 0.5 MG TABLET PO PRN (21:42)
--- NOTE | 2016-09-01 23:35 | PN ---
DATE: 08/30/2016 This late entry for 08/30/2016 covers elements not covered in my initial note. SUBJECTIVE: The patient remains confused, smiling, oblivious of his surroundings. He is rather large built and this makes him come across. He has been domineering, but he has not been aggressive or threatening. REVIEW OF SYSTEMS: No CV, , pulmonary, eye, ENT system symptoms on review. Reliability poor. MENTAL STATUS EXAM: Oriented to himself. Insight, judgment, recent and remote memory, attention, concentration, fund of knowledge poor, consistent with his diagnosis mentioned in my initial note. PLAN: Continue current psychotropics mentioned in my initial note. We will increase Zoloft to 75 mg a day. MAN Sindhu GOODEN MD DR: NOLA/juan f JOB#: [id number] / [id number]
[2016-09-02 06:39] VITALS: BP 135/79
[2016-09-02] MEDS: QUEtiapine 25 MG TABLET. PO SCH ×4 (08:28→20:04)
[2016-09-02] MEDS: ASPIRIN ENTERIC COATED 81 MG TABLET.DR. PO SCH (08:28)
[2016-09-02] MEDS: MEMANTINE 10 MG TABLET. PO SCH ×2 (08:29→20:04)
[2016-09-02] MEDS: SERTRALINE 50 MG TABLET. PO SCH (08:30)
[2016-09-02 16:19] VITALS: BP 115/71
[2016-09-02] MEDS: MELATONIN 3 MG TABLET PO SCH (20:04)
--- NOTE | 2016-09-02 21:11 | PDOC ---
Exam Jesus Demential Exam: Jesus Note: Please also refer to the separate dictated note~for this date of service dictated separately.~Patient seen individually. Discussed the patient with Nursing staff reviewed the chart.~Reviewed interim history and current functioning. Reviewed vital signs,~Labs/ Radiology~and current medications noted below. Continue current treatment with the changes noted in the dictated addendum note Assessment: Vital Signs: Vital Signs Date Time Temp Pulse Resp B/P (MAP) Pulse Ox O2 Delivery O2 Flow Rate FiO2 09/02/16 16:19 97.7 68 18 115/71 (86) 96 I&O Intake and Output 09/02/16 07:00 Intake Total 1560 ml Balance 1560 ml Intake Oral 1560 ml Current Medications: Meds: Current Medications Multi-Ingredient Ointment (Analgesic [place]) 1 sarah PRN QID PRN TP MUSCLE PAIN; Start 08/25/16 at 17:15 Al Hydroxide/Mg Hydroxide (Mylanta Plus Xs) 15 ml PRN AFTMEALHC PRN PO DYSPEPSIA; Start 08/25/16 at 17:15 Acetaminophen (Tylenol) 650 mg PRN Q4HRS PRN PO PAIN/FEVER; Start 08/25/16 at 18 :15 Aspirin (Aspirin Enteric Coated) 81 mg DAILY PO Last administered on 09/02/16 08:28; Start 08/26/16 at 09:00 Acetaminophen/ Hydrocodone Bitart (Lortab 5/325) 1 tab PRN Q6HRS PRN PO PAIN Last administered on 08/30/16 17:34; Start 08/25/16 at 18:15 Lorazepam (Ativan) 0.5 mg PRN QID PRN PO ANXIETY / AGITATION Last administered on 09/01/16 21:42; Start 08/25/16 at 18:15 Memantine (Namenda) 10 mg BID PO ; Start 08/25/16 at 21:00; Status UNV Memantine (Namenda) 10 mg BID PO Last administered on 09/02/16 20:04; Start at 21:00 Quetiapine Fumarate (SEROquel) 25 mg HS PO Last administered on 09/02/16 20:04 ; Start 08/25/16 at 21:00 Magnesium Hydroxide (Milk Of Magnesia) 2,400 mg PRN QHS PRN PO CONSTIPATION Last administered on 08/25/16 20:49; Start 08/25/16 at 18:30 Melatonin 3 mg QHS PO Last administered on 09/02/16 20:04; Start 08/25/16 at 21 :00 Quetiapine Fumarate (SEROquel) 12.5 mg BID92 PO Last administered on 08/28/16 14:05; Start 08/26/16 at 09:00; Stop 08/28/16 at 18:34; Status DC Olanzapine (Zyprexa Zydis) 2.5 mg PRN Q2HR PRN PO PSYCHOSIS; Start 08/25/16 at 18:30 Sertraline HCl (Zoloft) 25 mg DAILY PO Last administered on 08/27/16 08:45; Start 08/27/16 at 09:00; Stop 08/27/16 at 18:17; Status DC Sertraline HCl (Zoloft) 50 mg DAILY PO Last administered on 08/31/16 08:58; Start 08/28/16 at 09:00; Stop 09/01/16 at 09:57; Status DC Quetiapine Fumarate (SEROquel) 12.5 mg TID PO Last administered on 09/02/16 20 :04; Start 08/28/16 at 21:00 Vitamin D (Vitamin D3) 50,000 unit WEEKLY PO Last administered on 08/31/16 08: 59; Start 08/31/16 at 09:00 Sertraline HCl (Zoloft) 75 mg DAILY PO Last administered on 09/02/16 08:30; Start 09/02/16 at 09:00 Active Scripts Active Reported Seroquel (Quetiapine Fumarate) 25 Mg Tablet 25 Mg PO HS Namenda (Memantine Hcl) 10 Mg Tablet 10 Mg PO BID Milk Of Magnesia (Magnesium Hydroxide) 2,400 Mg/10 Ml Oral.susp 2,400 Mg PO PRN QHS PRN Tylenol (Acetaminophen) 325 Mg Tablet 650 Mg PO PRN Q4HRS Namenda (Memantine Hcl) 10 Mg Tablet 10 Mg PO BID Melatonin 3 Mg Tab.rapdis 3 Mg PO HS Lorazepam 0.5 Mg Tablet 0.5 Mg PO PRN QID PRN Hydrocodone-Apap 5-325 (Hydrocodone Bit/Acetaminophen) 1 Each Tablet 1 Tab PO PRN Q6HRS PRN Aspir-Low (Aspirin) 81 Mg Tablet. 81 Mg PO DAILY EFRAIN GOODEN MD September 02, 2016 21:11
--- NOTE | 2016-09-03 01:47 | PN ---
DATE: 09/01/2016 This is a late entry for 09/01/2016 covers elements not covered in my initial note. SUBJECTIVE: The patient remains pleasant, cooperative, confused, wandering, not aggressive. REVIEW OF SYSTEMS: No CV, , pulmonary, eye system symptoms on review. MENTAL STATUS EXAM: Oriented to himself. Insight, judgment, recent and remote memory, attention, concentration, fund of knowledge poor, consistent with his diagnosis mentioned in my initial note. LABORATORY DATA: Reviewed. IMPRESSION: Unchanged from initial note. PLAN: Continue current psychotropics mentioned in my initial note. Adjust further as clinically indicated. MAN Sindhu GOODEN MD DR: NOLA/juan f JOB#: [id number] / [id number]
--- NOTE | 2016-09-03 01:58 | PN ---
DATE: 08/31/2016 PSYCHIATRIC PROGRESS NOTE This is late entry of 08/31/2016, covers elements not covered in my initial note. SUBJECTIVE: Overall, the patient remains confused, redirectable, wandering, pleasant, participated in activities, loves to dance per nursing report. REVIEW OF SYSTEMS: No CV, , pulmonary, eye, ENT system symptoms on review. Reliability poor. MENTAL STATUS EXAMINATION: Oriented to himself. Insight, judgment, recent and remote memory, attention, concentration, fund of knowledge poor, consistent with his diagnosis. Pleasant, smiling, oblivious of his surroundings as I met with him. LABORATORY DATA: Reviewed. IMPRESSION: Unchanged from initial note. PLAN: Continue current psychotropics, adjust further as clinically indicated. MAN Sindhu GOODEN MD DR: NOLA/juan f JOB#: [id number] / [id number]
[2016-09-03 06:10] VITALS: BP 129/83
[2016-09-03] MEDS: SERTRALINE 50 MG TABLET. PO SCH (08:52)
[2016-09-03] MEDS: ASPIRIN ENTERIC COATED 81 MG TABLET.DR. PO SCH (08:52)
[2016-09-03] MEDS: MEMANTINE 10 MG TABLET. PO SCH ×2 (08:53→20:25)
[2016-09-03] MEDS: QUEtiapine 25 MG TABLET. PO SCH ×4 (08:54→20:25)
[2016-09-03 16:01] VITALS: BP 105/51
[2016-09-03] MEDS: MELATONIN 3 MG TABLET PO SCH (20:25)
--- NOTE | 2016-09-03 21:12 | PDOC ---
Exam Jesus Demential Exam: Jesus Note: Please also refer to the separate dictated note~for this date of service dictated separately.~Patient seen individually. Discussed the patient with Nursing staff reviewed the chart.~Reviewed interim history and current functioning. Reviewed vital signs,~Labs/ Radiology~and current medications noted below. Continue current treatment with the changes noted in the dictated addendum note Assessment: Vital Signs: Vital Signs Date Time Temp Pulse Resp B/P (MAP) Pulse Ox O2 Delivery O2 Flow Rate FiO2 09/03/16 16:01 97.6 66 18 105/51 (69) 98 I&O Intake and Output 09/03/16 07:00 Intake Total 1320 ml Balance 1320 ml Intake Oral 1320 ml Current Medications: Meds: Current Medications Multi-Ingredient Ointment (Analgesic [place]) 1 sarah PRN QID PRN TP MUSCLE PAIN; Start 08/25/16 at 17:15 Al Hydroxide/Mg Hydroxide (Mylanta Plus Xs) 15 ml PRN AFTMEALHC PRN PO DYSPEPSIA; Start 08/25/16 at 17:15 Acetaminophen (Tylenol) 650 mg PRN Q4HRS PRN PO PAIN/FEVER; Start 08/25/16 at 18 :15 Aspirin (Aspirin Enteric Coated) 81 mg DAILY PO Last administered on 09/03/16 08:52; Start 08/26/16 at 09:00 Acetaminophen/ Hydrocodone Bitart (Lortab 5/325) 1 tab PRN Q6HRS PRN PO PAIN Last administered on 08/30/16 17:34; Start 08/25/16 at 18:15 Lorazepam (Ativan) 0.5 mg PRN QID PRN PO ANXIETY / AGITATION Last administered on 09/01/16 21:42; Start 08/25/16 at 18:15 Memantine (Namenda) 10 mg BID PO ; Start 08/25/16 at 21:00; Status UNV Memantine (Namenda) 10 mg BID PO Last administered on 09/03/16 20:25; Start at 21:00 Quetiapine Fumarate (SEROquel) 25 mg HS PO Last administered on 09/03/16 20:25 ; Start 08/25/16 at 21:00 Magnesium Hydroxide (Milk Of Magnesia) 2,400 mg PRN QHS PRN PO CONSTIPATION Last administered on 08/25/16 20:49; Start 08/25/16 at 18:30 Melatonin 3 mg QHS PO Last administered on 09/03/16 20:25; Start 08/25/16 at 21 :00 Quetiapine Fumarate (SEROquel) 12.5 mg BID92 PO Last administered on 08/28/16 14:05; Start 08/26/16 at 09:00; Stop 08/28/16 at 18:34; Status DC Olanzapine (Zyprexa Zydis) 2.5 mg PRN Q2HR PRN PO PSYCHOSIS; Start 08/25/16 at 18:30 Sertraline HCl (Zoloft) 25 mg DAILY PO Last administered on 08/27/16 08:45; Start 08/27/16 at 09:00; Stop 08/27/16 at 18:17; Status DC Sertraline HCl (Zoloft) 50 mg DAILY PO Last administered on 08/31/16 08:58; Start 08/28/16 at 09:00; Stop 09/01/16 at 09:57; Status DC Quetiapine Fumarate (SEROquel) 12.5 mg TID PO Last administered on 09/03/16 20 :25; Start 08/28/16 at 21:00 Vitamin D (Vitamin D3) 50,000 unit WEEKLY PO Last administered on 08/31/16 08: 59; Start 08/31/16 at 09:00 Sertraline HCl (Zoloft) 75 mg DAILY PO Last administered on 09/03/16 08:52; Start 09/02/16 at 09:00 Active Scripts Active Reported Seroquel (Quetiapine Fumarate) 25 Mg Tablet 25 Mg PO HS Namenda (Memantine Hcl) 10 Mg Tablet 10 Mg PO BID Milk Of Magnesia (Magnesium Hydroxide) 2,400 Mg/10 Ml Oral.susp 2,400 Mg PO PRN QHS PRN Tylenol (Acetaminophen) 325 Mg Tablet 650 Mg PO PRN Q4HRS Namenda (Memantine Hcl) 10 Mg Tablet 10 Mg PO BID Melatonin 3 Mg Tab.rapdis 3 Mg PO HS Lorazepam 0.5 Mg Tablet 0.5 Mg PO PRN QID PRN Hydrocodone-Apap 5-325 (Hydrocodone Bit/Acetaminophen) 1 Each Tablet 1 Tab PO PRN Q6HRS PRN Aspir-Low (Aspirin) 81 Mg Tablet. 81 Mg PO DAILY EFRAIN GOODEN MD September 03, 2016 21:12
--- NOTE | 2016-09-04 01:39 | PN ---
DATE: 09/02/2016 PSYCHIATRIC PROGRESS NOTE This is late entry of 09/02/2016, covers elements not covered in my initial note. SUBJECTIVE: The patient remains confused, not aggressive. He is rather big built and comes across a little domineering. REVIEW OF SYSTEMS: No CV, , pulmonary, eye, ENT system symptoms on review. MENTAL STATUS EXAMINATION: Oriented to himself. Insight, judgment, recent and remote memory, attention, concentration, fund of knowledge poor, consistent with his diagnosis mentioned in my initial note. PLAN: Continue psychotropics mentioned in my initial note including Seroquel, Namenda, melatonin, Zyprexa and Ativan p.r.n., Zoloft, adjust as clinically indicated. MAN Sindhu GOODEN MD DR: NOLA/juan f JOB#: [id number] / [id number]
[2016-09-04 06:25] VITALS: BP 125/65
[2016-09-04] MEDS: QUEtiapine 25 MG TABLET. PO SCH ×4 (09:35→19:12)
[2016-09-04] MEDS: MEMANTINE 10 MG TABLET. PO SCH ×2 (09:35→19:11)
[2016-09-04] MEDS: SERTRALINE 50 MG TABLET. PO SCH (09:35)
[2016-09-04] MEDS: ASPIRIN ENTERIC COATED 81 MG TABLET.DR. PO SCH (09:35)
[2016-09-04 16:13] VITALS: BP 102/61
[2016-09-04] MEDS: MELATONIN 3 MG TABLET PO SCH (19:11)
--- NOTE | 2016-09-04 20:43 | PDOC ---
Exam Jesus Demential Exam: Jesus Note: Please also refer to the separate dictated note~for this date of service dictated separately.~Patient seen individually. Discussed the patient with Nursing staff reviewed the chart.~Reviewed interim history and current functioning. Reviewed vital signs,~Labs/ Radiology~and current medications noted below. Continue current treatment with the changes noted in the dictated addendum note Assessment: Vital Signs: Vital Signs Date Time Temp Pulse Resp B/P (MAP) Pulse Ox O2 Delivery O2 Flow Rate FiO2 09/04/16 16:13 98.3 64 20 102/61 (75) 94 I&O Intake and Output 09/04/16 07:00 Intake Total 1200 ml Balance 1200 ml Intake Oral 1200 ml Current Medications: Meds: Current Medications Multi-Ingredient Ointment (Analgesic [place]) 1 sarah PRN QID PRN TP MUSCLE PAIN; Start 08/25/16 at 17:15 Al Hydroxide/Mg Hydroxide (Mylanta Plus Xs) 15 ml PRN AFTMEALHC PRN PO DYSPEPSIA; Start 08/25/16 at 17:15 Acetaminophen (Tylenol) 650 mg PRN Q4HRS PRN PO PAIN/FEVER; Start 08/25/16 at 18 :15 Aspirin (Aspirin Enteric Coated) 81 mg DAILY PO Last administered on 09/04/16 09:35; Start 08/26/16 at 09:00 Acetaminophen/ Hydrocodone Bitart (Lortab 5/325) 1 tab PRN Q6HRS PRN PO PAIN Last administered on 08/30/16 17:34; Start 08/25/16 at 18:15 Lorazepam (Ativan) 0.5 mg PRN QID PRN PO ANXIETY / AGITATION Last administered on 09/01/16 21:42; Start 08/25/16 at 18:15 Memantine (Namenda) 10 mg BID PO ; Start 08/25/16 at 21:00; Status UNV Memantine (Namenda) 10 mg BID PO Last administered on 09/04/16 19:11; Start at 21:00 Quetiapine Fumarate (SEROquel) 25 mg HS PO Last administered on 09/04/16 19:11 ; Start 08/25/16 at 21:00 Magnesium Hydroxide (Milk Of Magnesia) 2,400 mg PRN QHS PRN PO CONSTIPATION Last administered on 08/25/16 20:49; Start 08/25/16 at 18:30 Melatonin 3 mg QHS PO Last administered on 09/04/16 19:11; Start 08/25/16 at 21 :00 Quetiapine Fumarate (SEROquel) 12.5 mg BID92 PO Last administered on 08/28/16 14:05; Start 08/26/16 at 09:00; Stop 08/28/16 at 18:34; Status DC Olanzapine (Zyprexa Zydis) 2.5 mg PRN Q2HR PRN PO PSYCHOSIS; Start 08/25/16 at 18:30 Sertraline HCl (Zoloft) 25 mg DAILY PO Last administered on 08/27/16 08:45; Start 08/27/16 at 09:00; Stop 08/27/16 at 18:17; Status DC Sertraline HCl (Zoloft) 50 mg DAILY PO Last administered on 08/31/16 08:58; Start 08/28/16 at 09:00; Stop 09/01/16 at 09:57; Status DC Quetiapine Fumarate (SEROquel) 12.5 mg TID PO Last administered on 09/04/16 19 :12; Start 08/28/16 at 21:00 Vitamin D (Vitamin D3) 50,000 unit WEEKLY PO Last administered on 08/31/16 08: 59; Start 08/31/16 at 09:00 Sertraline HCl (Zoloft) 75 mg DAILY PO Last administered on 09/04/16 09:35; Start 09/02/16 at 09:00 Active Scripts Active Reported Seroquel (Quetiapine Fumarate) 25 Mg Tablet 25 Mg PO HS Namenda (Memantine Hcl) 10 Mg Tablet 10 Mg PO BID Milk Of Magnesia (Magnesium Hydroxide) 2,400 Mg/10 Ml Oral.susp 2,400 Mg PO PRN QHS PRN Tylenol (Acetaminophen) 325 Mg Tablet 650 Mg PO PRN Q4HRS Namenda (Memantine Hcl) 10 Mg Tablet 10 Mg PO BID Melatonin 3 Mg Tab.rapdis 3 Mg PO HS Lorazepam 0.5 Mg Tablet 0.5 Mg PO PRN QID PRN Hydrocodone-Apap 5-325 (Hydrocodone Bit/Acetaminophen) 1 Each Tablet 1 Tab PO PRN Q6HRS PRN Aspir-Low (Aspirin) 81 Mg Tablet. 81 Mg PO DAILY EFRAIN GOODEN MD September 04, 2016 20:43
--- NOTE | 2016-09-04 22:48 | PN ---
DATE: 09/03/2016 PSYCHIATRIC PROGRESS NOTE This is late entry of 09/03/2016, covers elements not covered in my initial note. SUBJECTIVE: The patient remains confused, withdrawn, not aggressive, quite cooperative, per nursing staff takes his medications whole. REVIEW OF SYSTEMS: No CV, , pulmonary, eye system symptoms on review. Fairly oblivious to his surroundings. MENTAL STATUS EXAMINATION: Oriented to himself. Insight, judgment, recent and remote memory, attention, concentration, fund of knowledge poor, consistent with his diagnosis mentioned in my initial note. PLAN: Continue Namenda 10 b.i.d., Seroquel 12.5 t.i.d., melatonin 3 mg at bedtime, Seroquel p.r.n., Ativan p.r.n., Zyprexa p.r.n., Zoloft 125 mg a day, adjust further as clinically indicated. MAN Sindhu GOODEN MD DR: NOLA/juan f JOB#: [id number] / [id number]
[2016-09-05 05:57] VITALS: BP 121/66
[2016-09-05] MEDS: QUEtiapine 25 MG TABLET. PO SCH ×4 (08:42→20:17)
[2016-09-05] MEDS: ASPIRIN ENTERIC COATED 81 MG TABLET.DR. PO SCH (08:42)
[2016-09-05] MEDS: MEMANTINE 10 MG TABLET. PO SCH ×2 (08:42→20:17)
[2016-09-05] MEDS: SERTRALINE 50 MG TABLET. PO SCH (08:42)
[2016-09-05 15:56] VITALS: BP 121/64
[2016-09-05] MEDS: busPIRone 5 MG TABLET. PO SCH (20:16)
[2016-09-05] MEDS: MELATONIN 3 MG TABLET PO SCH (20:17)
--- NOTE | 2016-09-05 21:09 | PDOC ---
Exam Jesus Demential Exam: Jesus Note: Please also refer to the separate dictated note~for this date of service dictated separately.~Patient seen individually. Discussed the patient with Nursing staff reviewed the chart.~Reviewed interim history and current functioning. Reviewed vital signs,~Labs/ Radiology~and current medications noted below. Continue current treatment with the changes noted in the dictated addendum note Assessment: Vital Signs: Vital Signs Date Time Temp Pulse Resp B/P (MAP) Pulse Ox O2 Delivery O2 Flow Rate FiO2 09/05/16 15:56 97.3 65 16 121/64 (83) 97 I&O Intake and Output 09/05/16 07:00 Intake Total 960 ml Balance 960 ml Intake Oral 960 ml Current Medications: Meds: Current Medications Multi-Ingredient Ointment (Analgesic [place]) 1 sarah PRN QID PRN TP MUSCLE PAIN; Start 08/25/16 at 17:15 Al Hydroxide/Mg Hydroxide (Mylanta Plus Xs) 15 ml PRN AFTMEALHC PRN PO DYSPEPSIA; Start 08/25/16 at 17:15 Acetaminophen (Tylenol) 650 mg PRN Q4HRS PRN PO PAIN/FEVER; Start 08/25/16 at 18 :15 Aspirin (Aspirin Enteric Coated) 81 mg DAILY PO Last administered on 09/05/16 08:42; Start 08/26/16 at 09:00 Acetaminophen/ Hydrocodone Bitart (Lortab 5/325) 1 tab PRN Q6HRS PRN PO PAIN Last administered on 08/30/16 17:34; Start 08/25/16 at 18:15 Lorazepam (Ativan) 0.5 mg PRN QID PRN PO ANXIETY / AGITATION Last administered on 09/01/16 21:42; Start 08/25/16 at 18:15 Memantine (Namenda) 10 mg BID PO ; Start 08/25/16 at 21:00; Status UNV Memantine (Namenda) 10 mg BID PO Last administered on 09/05/16 20:17; Start at 21:00 Quetiapine Fumarate (SEROquel) 25 mg HS PO Last administered on 09/05/16 20:17 ; Start 08/25/16 at 21:00 Magnesium Hydroxide (Milk Of Magnesia) 2,400 mg PRN QHS PRN PO CONSTIPATION Last administered on 08/25/16 20:49; Start 08/25/16 at 18:30 Melatonin 3 mg QHS PO Last administered on 09/05/16 20:17; Start 08/25/16 at 21 :00 Quetiapine Fumarate (SEROquel) 12.5 mg BID92 PO Last administered on 08/28/16 14:05; Start 08/26/16 at 09:00; Stop 08/28/16 at 18:34; Status DC Olanzapine (Zyprexa Zydis) 2.5 mg PRN Q2HR PRN PO PSYCHOSIS; Start 08/25/16 at 18:30 Sertraline HCl (Zoloft) 25 mg DAILY PO Last administered on 08/27/16 08:45; Start 08/27/16 at 09:00; Stop 08/27/16 at 18:17; Status DC Sertraline HCl (Zoloft) 50 mg DAILY PO Last administered on 08/31/16 08:58; Start 08/28/16 at 09:00; Stop 09/01/16 at 09:57; Status DC Quetiapine Fumarate (SEROquel) 12.5 mg TID PO Last administered on 09/05/16 20 :17; Start 08/28/16 at 21:00 Vitamin D (Vitamin D3) 50,000 unit WEEKLY PO Last administered on 08/31/16 08: 59; Start 08/31/16 at 09:00 Sertraline HCl (Zoloft) 75 mg DAILY PO Last administered on 09/05/16 08:42; Start 09/02/16 at 09:00 Buspirone HCl (Buspar) 5 mg BID PO Last administered on 09/05/16 20:16; Start 09/05/16 at 21:00 Active Scripts Active Reported Seroquel (Quetiapine Fumarate) 25 Mg Tablet 25 Mg PO HS Namenda (Memantine Hcl) 10 Mg Tablet 10 Mg PO BID Milk Of Magnesia (Magnesium Hydroxide) 2,400 Mg/10 Ml Oral.susp 2,400 Mg PO PRN QHS PRN Tylenol (Acetaminophen) 325 Mg Tablet 650 Mg PO PRN Q4HRS Namenda (Memantine Hcl) 10 Mg Tablet 10 Mg PO BID Melatonin 3 Mg Tab.rapdis 3 Mg PO HS Lorazepam 0.5 Mg Tablet 0.5 Mg PO PRN QID PRN Hydrocodone-Apap 5-325 (Hydrocodone Bit/Acetaminophen) 1 Each Tablet 1 Tab PO PRN Q6HRS PRN Aspir-Low (Aspirin) 81 Mg Tablet. 81 Mg PO DAILY EFRAIN GOODEN MD September 05, 2016 21:09
[2016-09-06 05:21] VITALS: BP 145/67
[2016-09-06] MEDS: MEMANTINE 10 MG TABLET. PO SCH ×2 (08:46→20:04)
[2016-09-06] MEDS: QUEtiapine 25 MG TABLET. PO SCH ×4 (08:46→21:00)
[2016-09-06] MEDS: ASPIRIN ENTERIC COATED 81 MG TABLET.DR. PO SCH (08:46)
[2016-09-06] MEDS: busPIRone 5 MG TABLET. PO SCH ×2 (08:46→20:03)
[2016-09-06] MEDS: SERTRALINE 50 MG TABLET. PO SCH (08:46)
[2016-09-06 16:29] VITALS: BP 131/59
[2016-09-06] MEDS: MELATONIN 3 MG TABLET PO SCH (20:03)
--- NOTE | 2016-09-06 21:13 | PDOC ---
Exam Jesus Demential Exam: Jesus Note: Please also refer to the separate dictated note~for this date of service dictated separately.~Patient seen individually. Discussed the patient with Nursing staff reviewed the chart.~Reviewed interim history and current functioning. Reviewed vital signs,~Labs/ Radiology~and current medications noted below. Continue current treatment with the changes noted in the dictated addendum note Assessment: Vital Signs: Vital Signs Date Time Temp Pulse Resp B/P (MAP) Pulse Ox O2 Delivery O2 Flow Rate FiO2 09/06/16 16:29 97.9 72 16 131/59 (83) 97 I&O Intake and Output 09/06/16 07:00 Intake Total 1440 ml Balance 1440 ml Intake Oral 1440 ml Current Medications: Meds: Current Medications Multi-Ingredient Ointment (Analgesic [place]) 1 sarah PRN QID PRN TP MUSCLE PAIN; Start 08/25/16 at 17:15 Al Hydroxide/Mg Hydroxide (Mylanta Plus Xs) 15 ml PRN AFTMEALHC PRN PO DYSPEPSIA; Start 08/25/16 at 17:15 Acetaminophen (Tylenol) 650 mg PRN Q4HRS PRN PO PAIN/FEVER; Start 08/25/16 at 18 :15 Aspirin (Aspirin Enteric Coated) 81 mg DAILY PO Last administered on 09/06/16 08:46; Start 08/26/16 at 09:00 Acetaminophen/ Hydrocodone Bitart (Lortab 5/325) 1 tab PRN Q6HRS PRN PO PAIN Last administered on 08/30/16 17:34; Start 08/25/16 at 18:15 Lorazepam (Ativan) 0.5 mg PRN QID PRN PO ANXIETY / AGITATION Last administered on 09/01/16 21:42; Start 08/25/16 at 18:15 Memantine (Namenda) 10 mg BID PO ; Start 08/25/16 at 21:00; Status UNV Memantine (Namenda) 10 mg BID PO Last administered on 09/06/16 20:04; Start at 21:00 Quetiapine Fumarate (SEROquel) 25 mg HS PO Last administered on 09/06/16 20:03 ; Start 08/25/16 at 21:00 Magnesium Hydroxide (Milk Of Magnesia) 2,400 mg PRN QHS PRN PO CONSTIPATION Last administered on 08/25/16 20:49; Start 08/25/16 at 18:30 Melatonin 3 mg QHS PO Last administered on 09/06/16 20:03; Start 08/25/16 at 21 :00 Quetiapine Fumarate (SEROquel) 12.5 mg BID92 PO Last administered on 08/28/16 14:05; Start 08/26/16 at 09:00; Stop 08/28/16 at 18:34; Status DC Olanzapine (Zyprexa Zydis) 2.5 mg PRN Q2HR PRN PO PSYCHOSIS; Start 08/25/16 at 18:30 Sertraline HCl (Zoloft) 25 mg DAILY PO Last administered on 08/27/16 08:45; Start 08/27/16 at 09:00; Stop 08/27/16 at 18:17; Status DC Sertraline HCl (Zoloft) 50 mg DAILY PO Last administered on 08/31/16 08:58; Start 08/28/16 at 09:00; Stop 09/01/16 at 09:57; Status DC Quetiapine Fumarate (SEROquel) 12.5 mg TID PO Last administered on 09/06/16 15 :09; Start 08/28/16 at 21:00 Vitamin D (Vitamin D3) 50,000 unit WEEKLY PO Last administered on 08/31/16 08: 59; Start 08/31/16 at 09:00 Sertraline HCl (Zoloft) 75 mg DAILY PO Last administered on 09/06/16 08:46; Start 09/02/16 at 09:00 Buspirone HCl (Buspar) 5 mg BID PO Last administered on 09/06/16 20:03; Start 09/05/16 at 21:00 Active Scripts Active Reported Seroquel (Quetiapine Fumarate) 25 Mg Tablet 25 Mg PO HS Namenda (Memantine Hcl) 10 Mg Tablet 10 Mg PO BID Milk Of Magnesia (Magnesium Hydroxide) 2,400 Mg/10 Ml Oral.susp 2,400 Mg PO PRN QHS PRN Tylenol (Acetaminophen) 325 Mg Tablet 650 Mg PO PRN Q4HRS Namenda (Memantine Hcl) 10 Mg Tablet 10 Mg PO BID Melatonin 3 Mg Tab.rapdis 3 Mg PO HS Lorazepam 0.5 Mg Tablet 0.5 Mg PO PRN QID PRN Hydrocodone-Apap 5-325 (Hydrocodone Bit/Acetaminophen) 1 Each Tablet 1 Tab PO PRN Q6HRS PRN Aspir-Low (Aspirin) 81 Mg Tablet. 81 Mg PO DAILY EFRAIN GOODEN MD September 06, 2016 21:13
--- NOTE | 2016-09-07 00:44 | PN ---
DATE: 09/04/2016 PSYCHIATRIC PROGRESS NOTE This is a late entry for 09/04/2016, covers elements not covered in my initial note. SUBJECTIVE: The patient remains confused, somewhat big in size, makes him a little domineering, threatening at times, but he has not been aggressive. He had 1 incident where he raised a fist when he felt staff members were crowding around another female patient on the unit and he felt that the patient was being threatened. He did not; however, act out in any way, smiled; otherwise, pleasant and compliant with medications. REVIEW OF SYSTEMS: No CV, , pulmonary, eye, ENT system symptoms on review. Reliability poor. MENTAL STATUS EXAM: Oriented to himself. Insight, judgment, recent and remote memory, attention, concentration, fund of knowledge poor, consistent with his diagnosis mentioned in my initial note. PLAN: Continue current psychotropics. Adjust further as clinically indicated. MAN Sindhu GOODEN MD DR: NOLA/juan f JOB#: [id number] / [id number]
--- NOTE | 2016-09-07 00:45 | PN ---
DATE: 09/05/2016 PSYCHIATRIC PROGRESS NOTE This is a late entry of 09/05/2016 covers elements not covered in my initial note. SUBJECTIVE: The patient was staffed at a treatment team meeting with the entire team. The patient's daughter, Grisel, attended the conference reviewed the patient's history, diagnosis, progress, discharge plans at length sleeping about 6-1/2 hours. Appetite 100%, confused, anxious. REVIEW OF SYSTEMS: No CV, , pulmonary, eye, ENT system symptoms on review. Reliability poor. MENTAL STATUS EXAM: Oriented to himself. Insight, judgment, recent and remote memory, attention, concentration, fund of knowledge poor, consistent with his diagnosis mentioned in my initial note. PLAN: Start BuSpar 5 mg twice a day given the incident mentioned in my previous note. PLAN: Continue Namenda 10 b.i.d., Seroquel 12.5 t.i.d., melatonin 3 mg at bedtime, Seroquel p.r.n., Ativan, Zyprexa p.r.n., Zoloft 125 mg a day. Adjust further as clinically indicated. MAN Sindhu GOODEN MD DR: NOLA/juan f JOB#: [id number] / [id number]
[2016-09-07 06:18] VITALS: BP 118/73
[2016-09-07] MEDS: ASPIRIN ENTERIC COATED 81 MG TABLET.DR. PO SCH (08:38)
[2016-09-07] MEDS: QUEtiapine 25 MG TABLET. PO SCH ×4 (08:38→20:23)
[2016-09-07] MEDS: SERTRALINE 50 MG TABLET. PO SCH (08:38)
[2016-09-07] MEDS: CHOLECALCIFEROL (VITAMIN D3) 50,000 UNIT CAPSULE PO SCH (08:39)
[2016-09-07] MEDS: busPIRone 5 MG TABLET. PO SCH ×2 (08:39→20:21)
[2016-09-07] MEDS: MEMANTINE 10 MG TABLET. PO SCH ×2 (08:39→20:21)
[2016-09-07 15:28] LABS: ALBUMIN 3.2 g/dL (3.4-5.0); ALBUMIN/GLOBULIN RATIO 0.9 (1.0-1.7); CALCIUM 8.5 mg/dL (8.5-10.1); CREATININE 1.2 mg/dL (0.7-1.3); GFR 57.5; MAGNESIUM 2.1 mg/dL (1.8-2.4); POTASSIUM 4.3 mmol/L (3.5-5.1); TOTAL BILIRUBIN 0.3 mg/dL (0.2-1.0); TOTAL PROTEIN 6.7 g/dL (6.4-8.2)
[2016-09-07 15:34] LABS: BASO # 0.1 x10^3/uL (0.0-0.2); BASO % 2 % (0-3); EOS # 0.6 x10^3/uL (0.0-0.7); EOS % 8 % (0-3); HEMATOCRIT 35.2 % (39.0-53.0); HEMOGLOBIN 11.9 g/dL (13.0-17.5); LYMPH # 1.8 x10^3/uL (1.0-4.8); LYMPH % 25 % (24-48); MEAN CORPUSCULAR HEMOGLOBIN 30 pg (25-35); MEAN CORPUSCULAR HGB CONC 34 g/dL (31-37); MEAN CORPUSCULAR VOLUME 88 fL (79-100); MONO # 0.8 x10^3/uL (0.0-1.1); MONO % 11 % (0-9); NEUT # 4.1 x10^3uL (1.8-7.7); NEUT % 55 % (31-73); PLATELET COUNT 156 x10^3/uL (140-400); WHITE BLOOD COUNT 7.5 x10^3/uL (4.0-11.0)
[2016-09-07 16:38] VITALS: BP 129/74
[2016-09-07] MEDS: MELATONIN 3 MG TABLET PO SCH (20:22)
--- NOTE | 2016-09-07 21:03 | PDOC ---
Exam Jesus Demential Exam: Jesus Note: Please also refer to the separate dictated note~for this date of service dictated separately.~Patient seen individually. Discussed the patient with Nursing staff reviewed the chart.~Reviewed interim history and current functioning. Reviewed vital signs,~Labs/ Radiology~and current medications noted below. Continue current treatment with the changes noted in the dictated addendum note Assessment: Vital Signs: Vital Signs Date Time Temp Pulse Resp B/P (MAP) Pulse Ox O2 Delivery O2 Flow Rate FiO2 09/07/16 16:38 97.4 82 18 129/74 (92) 97 I&O Intake and Output 09/07/16 07:00 Intake Total 960 ml Balance 960 ml Intake Oral 960 ml Labs: Laboratory Tests Test 09/07/16 14:54 White Blood Count 7.5 x10^3/uL (4.0-11.0) Red Blood Count 4.00 x10^6/uL (4.30-5.70) L Hemoglobin 11.9 g/dL (13.0-17.5) L Hematocrit 35.2 % (39.0-53.0) L Mean Corpuscular Volume 88 fL (79-100) Mean Corpuscular Hemoglobin 30 pg (25-35) Mean Corpuscular Hemoglobin Concent 34 g/dL (31-37) Red Cell Distribution Width 15.0 % (11.5-14.5) H Platelet Count 156 x10^3/uL (140-400) Neutrophils (%) (Auto) 55 % (31-73) Lymphocytes (%) (Auto) 25 % (24-48) Monocytes (%) (Auto) 11 % (0-9) H Eosinophils (%) (Auto) 8 % (0-3) H Basophils (%) (Auto) 2 % (0-3) Neutrophils # (Auto) 4.1 x10^3uL (1.8-7.7) Lymphocytes # (Auto) 1.8 x10^3/uL (1.0-4.8) Monocytes # (Auto) 0.8 x10^3/uL (0.0-1.1) Eosinophils # (Auto) 0.6 x10^3/uL (0.0-0.7) Basophils # (Auto) 0.1 x10^3/uL (0.0-0.2) Sodium Level 143 mmol/L (136-145) Potassium Level 4.3 mmol/L (3.5-5.1) Chloride Level 106 mmol/L (98-107) Carbon Dioxide Level 30 mmol/L (21-32) Anion Gap 7 (6-14) Blood Urea Nitrogen 26 mg/dL (8-26) Creatinine 1.2 mg/dL (0.7-1.3) Estimated GFR (Cockcroft-Gault) 57.5 BUN/Creatinine Ratio 22 (6-20) H Glucose Level 88 mg/dL (70-99) Calcium Level 8.5 mg/dL (8.5-10.1) Magnesium Level 2.1 mg/dL (1.8-2.4) Total Bilirubin 0.3 mg/dL (0.2-1.0) Aspartate Amino Transferase (AST) 18 U/L (15-37) Alanine Aminotransferase (ALT) 20 U/L (16-63) Alkaline Phosphatase 68 U/L (46-116) Total Protein 6.7 g/dL (6.4-8.2) Albumin 3.2 g/dL (3.4-5.0) L Albumin/Globulin Ratio 0.9 (1.0-1.7) L Current Medications: Meds: Current Medications Multi-Ingredient Ointment (Analgesic [place]) 1 sarah PRN QID PRN TP MUSCLE PAIN; Start 08/25/16 at 17:15 Al Hydroxide/Mg Hydroxide (Mylanta Plus Xs) 15 ml PRN AFTMEALHC PRN PO DYSPEPSIA; Start 08/25/16 at 17:15 Acetaminophen (Tylenol) 650 mg PRN Q4HRS PRN PO PAIN/FEVER; Start 08/25/16 at 18 :15 Aspirin (Aspirin Enteric Coated) 81 mg DAILY PO Last administered on 09/07/16 08:38; Start 08/26/16 at 09:00 Acetaminophen/ Hydrocodone Bitart (Lortab 5/325) 1 tab PRN Q6HRS PRN PO PAIN Last administered on 08/30/16 17:34; Start 08/25/16 at 18:15 Lorazepam (Ativan) 0.5 mg PRN QID PRN PO ANXIETY / AGITATION Last administered on 09/01/16 21:42; Start 08/25/16 at 18:15 Memantine (Namenda) 10 mg BID PO ; Start 08/25/16 at 21:00; Status UNV Memantine (Namenda) 10 mg BID PO Last administered on 09/07/16 08:39; Start at 21:00 Quetiapine Fumarate (SEROquel) 25 mg HS PO Last administered on 09/06/16 20:03 ; Start 08/25/16 at 21:00 Magnesium Hydroxide (Milk Of Magnesia) 2,400 mg PRN QHS PRN PO CONSTIPATION Last administered on 08/25/16 20:49; Start 08/25/16 at 18:30 Melatonin 3 mg QHS PO Last administered on 09/06/16 20:03; Start 08/25/16 at 21 :00 Quetiapine Fumarate (SEROquel) 12.5 mg BID92 PO Last administered on 08/28/16 14:05; Start 08/26/16 at 09:00; Stop 08/28/16 at 18:34; Status DC Olanzapine (Zyprexa Zydis) 2.5 mg PRN Q2HR PRN PO PSYCHOSIS; Start 08/25/16 at 18:30 Sertraline HCl (Zoloft) 25 mg DAILY PO Last administered on 08/27/16 08:45; Start 08/27/16 at 09:00; Stop 08/27/16 at 18:17; Status DC Sertraline HCl (Zoloft) 50 mg DAILY PO Last administered on 08/31/16 08:58; Start 08/28/16 at 09:00; Stop 09/01/16 at 09:57; Status DC Quetiapine Fumarate (SEROquel) 12.5 mg TID PO Last administered on 09/07/16 13 :56; Start 08/28/16 at 21:00 Vitamin D (Vitamin D3) 50,000 unit WEEKLY PO Last administered on 09/07/16 08: 39; Start 08/31/16 at 09:00 Sertraline HCl (Zoloft) 75 mg DAILY PO Last administered on 09/07/16 08:38; Start 09/02/16 at 09:00 Buspirone HCl (Buspar) 5 mg BID PO Last administered on 09/07/16 08:39; Start 5/18/17 at 21:00 Active Scripts Active Reported Seroquel (Quetiapine Fumarate) 25 Mg Tablet 25 Mg PO HS Namenda (Memantine Hcl) 10 Mg Tablet 10 Mg PO BID Milk Of Magnesia (Magnesium Hydroxide) 2,400 Mg/10 Ml Oral.susp 2,400 Mg PO PRN QHS PRN Tylenol (Acetaminophen) 325 Mg Tablet 650 Mg PO PRN Q4HRS Namenda (Memantine Hcl) 10 Mg Tablet 10 Mg PO BID Melatonin 3 Mg Tab.rapdis 3 Mg PO HS Lorazepam 0.5 Mg Tablet 0.5 Mg PO PRN QID PRN Hydrocodone-Apap 5-325 (Hydrocodone Bit/Acetaminophen) 1 Each Tablet 1 Tab PO PRN Q6HRS PRN Aspir-Low (Aspirin) 81 Mg Tablet. 81 Mg PO DAILY Diagnosis: Problems: (1) Dementia with behavioral disturbance (2) Anxiety disorder (3) Dementia in Alzheimer's disease with delusions (4) Dementia in Alzheimer's disease with depression (5) Dementia, vascular, with delusions (6) Dementia, vascular, with depression (7) Impulse control disorder EFRAIN GOODEN MD September 07, 2016 21:03
[2016-09-08 07:01] VITALS: BP 124/64
[2016-09-08] MEDS: busPIRone 5 MG TABLET. PO SCH ×2 (09:00→19:31)
[2016-09-08] MEDS: QUEtiapine 25 MG TABLET. PO SCH ×4 (09:00→23:30)
[2016-09-08] MEDS: ASPIRIN ENTERIC COATED 81 MG TABLET.DR. PO SCH (09:01)
[2016-09-08] MEDS: SERTRALINE 50 MG TABLET. PO SCH (09:01)
[2016-09-08] MEDS: MEMANTINE 10 MG TABLET. PO SCH ×2 (09:01→19:31)
[2016-09-08 16:21] VITALS: BP 112/62
[2016-09-08] MEDS: MELATONIN 3 MG TABLET PO SCH (19:31)
--- NOTE | 2016-09-08 19:52 | PDOC ---
Exam Jesus Demential Exam: Jesus Note: Please also refer to the separate dictated note~for this date of service dictated separately.~Patient seen individually. Discussed the patient with Nursing staff reviewed the chart.~Reviewed interim history and current functioning. Reviewed vital signs,~Labs/ Radiology~and current medications noted below. Continue current treatment with the changes noted in the dictated addendum note Assessment: Vital Signs: Vital Signs Date Time Temp Pulse Resp B/P (MAP) Pulse Ox O2 Delivery O2 Flow Rate FiO2 09/08/16 16:21 98.0 65 18 112/62 (79) 96 I&O Intake and Output 09/08/16 07:00 Intake Total 720 ml Balance 720 ml Intake Oral 720 ml Current Medications: Meds: Current Medications Multi-Ingredient Ointment (Analgesic [place]) 1 sarah PRN QID PRN TP MUSCLE PAIN; Start 08/25/16 at 17:15 Al Hydroxide/Mg Hydroxide (Mylanta Plus Xs) 15 ml PRN AFTMEALHC PRN PO DYSPEPSIA; Start 08/25/16 at 17:15 Acetaminophen (Tylenol) 650 mg PRN Q4HRS PRN PO PAIN/FEVER; Start 08/25/16 at 18 :15 Aspirin (Aspirin Enteric Coated) 81 mg DAILY PO Last administered on 09/08/16 09:01; Start 08/26/16 at 09:00 Acetaminophen/ Hydrocodone Bitart (Lortab 5/325) 1 tab PRN Q6HRS PRN PO PAIN Last administered on 08/30/16 17:34; Start 08/25/16 at 18:15 Lorazepam (Ativan) 0.5 mg PRN QID PRN PO ANXIETY / AGITATION Last administered on 09/01/16 21:42; Start 08/25/16 at 18:15 Memantine (Namenda) 10 mg BID PO ; Start 08/25/16 at 21:00; Status UNV Memantine (Namenda) 10 mg BID PO Last administered on 09/08/16 19:31; Start at 21:00 Quetiapine Fumarate (SEROquel) 25 mg HS PO Last administered on 09/08/16 19:31 ; Start 08/25/16 at 21:00 Magnesium Hydroxide (Milk Of Magnesia) 2,400 mg PRN QHS PRN PO CONSTIPATION Last administered on 08/25/16 20:49; Start 08/25/16 at 18:30 Melatonin 3 mg QHS PO Last administered on 09/08/16 19:31; Start 08/25/16 at 21 :00 Quetiapine Fumarate (SEROquel) 12.5 mg BID92 PO Last administered on 08/28/16 14:05; Start 08/26/16 at 09:00; Stop 08/28/16 at 18:34; Status DC Olanzapine (Zyprexa Zydis) 2.5 mg PRN Q2HR PRN PO PSYCHOSIS; Start 08/25/16 at 18:30 Sertraline HCl (Zoloft) 25 mg DAILY PO Last administered on 08/27/16 08:45; Start 08/27/16 at 09:00; Stop 08/27/16 at 18:17; Status DC Sertraline HCl (Zoloft) 50 mg DAILY PO Last administered on 08/31/16 08:58; Start 08/28/16 at 09:00; Stop 09/01/16 at 09:57; Status DC Quetiapine Fumarate (SEROquel) 12.5 mg TID PO Last administered on 09/08/16 13 :14; Start 08/28/16 at 21:00 Vitamin D (Vitamin D3) 50,000 unit WEEKLY PO Last administered on 09/07/16 08: 39; Start 08/31/16 at 09:00 Sertraline HCl (Zoloft) 75 mg DAILY PO Last administered on 09/08/16 09:01; Start 09/02/16 at 09:00 Buspirone HCl (Buspar) 5 mg BID PO Last administered on 09/08/16 19:31; Start 09/05/16 at 21:00 Active Scripts Active Reported Seroquel (Quetiapine Fumarate) 25 Mg Tablet 25 Mg PO HS Namenda (Memantine Hcl) 10 Mg Tablet 10 Mg PO BID Milk Of Magnesia (Magnesium Hydroxide) 2,400 Mg/10 Ml Oral.susp 2,400 Mg PO PRN QHS PRN Tylenol (Acetaminophen) 325 Mg Tablet 650 Mg PO PRN Q4HRS Namenda (Memantine Hcl) 10 Mg Tablet 10 Mg PO BID Melatonin 3 Mg Tab.rapdis 3 Mg PO HS Lorazepam 0.5 Mg Tablet 0.5 Mg PO PRN QID PRN Hydrocodone-Apap 5-325 (Hydrocodone Bit/Acetaminophen) 1 Each Tablet 1 Tab PO PRN Q6HRS PRN Aspir-Low (Aspirin) 81 Mg Tablet. 81 Mg PO DAILY EFRAIN GOODEN MD September 08, 2016 19:52
[2016-09-09 05:58] VITALS: BP 135/67
[2016-09-09] MEDS: MEMANTINE 10 MG TABLET. PO SCH ×2 (09:36→20:17)
[2016-09-09] MEDS: QUEtiapine 25 MG TABLET. PO SCH ×4 (09:36→20:17)
[2016-09-09] MEDS: SERTRALINE 50 MG TABLET. PO SCH (09:36)
[2016-09-09] MEDS: ASPIRIN ENTERIC COATED 81 MG TABLET.DR. PO SCH (09:36)
[2016-09-09] MEDS: busPIRone 5 MG TABLET. PO SCH ×2 (09:37→20:17)
[2016-09-09 16:56] VITALS: BP 108/54
--- NOTE | 2016-09-09 20:06 | PDOC ---
Exam Jesus Demential Exam: Jesus Note: Please also refer to the separate dictated note~for this date of service dictated separately.~Patient seen individually. Discussed the patient with Nursing staff reviewed the chart.~Reviewed interim history and current functioning. Reviewed vital signs,~Labs/ Radiology~and current medications noted below. Continue current treatment with the changes noted in the dictated addendum note Assessment: Vital Signs: Vital Signs Date Time Temp Pulse Resp B/P (MAP) Pulse Ox O2 Delivery O2 Flow Rate FiO2 09/09/16 16:56 98.1 74 18 108/54 (72) 95 Room Air I&O Intake and Output 09/09/16 07:00 Intake Total 720 ml Balance 720 ml Intake Oral 720 ml Current Medications: Meds: Current Medications Multi-Ingredient Ointment (Analgesic [place]) 1 sarah PRN QID PRN TP MUSCLE PAIN; Start 08/25/16 at 17:15 Al Hydroxide/Mg Hydroxide (Mylanta Plus Xs) 15 ml PRN AFTMEALHC PRN PO DYSPEPSIA; Start 08/25/16 at 17:15 Acetaminophen (Tylenol) 650 mg PRN Q4HRS PRN PO PAIN/FEVER; Start 08/25/16 at 18 :15 Aspirin (Aspirin Enteric Coated) 81 mg DAILY PO Last administered on 09/09/16 09:36; Start 08/26/16 at 09:00 Acetaminophen/ Hydrocodone Bitart (Lortab 5/325) 1 tab PRN Q6HRS PRN PO PAIN Last administered on 08/30/16 17:34; Start 08/25/16 at 18:15 Lorazepam (Ativan) 0.5 mg PRN QID PRN PO ANXIETY / AGITATION Last administered on 09/01/16 21:42; Start 08/25/16 at 18:15 Memantine (Namenda) 10 mg BID PO ; Start 08/25/16 at 21:00; Status UNV Memantine (Namenda) 10 mg BID PO Last administered on 09/09/16 09:36; Start at 21:00 Quetiapine Fumarate (SEROquel) 25 mg HS PO Last administered on 09/08/16 19:31 ; Start 08/25/16 at 21:00 Magnesium Hydroxide (Milk Of Magnesia) 2,400 mg PRN QHS PRN PO CONSTIPATION Last administered on 08/25/16 20:49; Start 08/25/16 at 18:30 Melatonin 3 mg QHS PO Last administered on 09/08/16 19:31; Start 08/25/16 at 21 :00 Quetiapine Fumarate (SEROquel) 12.5 mg BID92 PO Last administered on 08/28/16 14:05; Start 08/26/16 at 09:00; Stop 08/28/16 at 18:34; Status DC Olanzapine (Zyprexa Zydis) 2.5 mg PRN Q2HR PRN PO PSYCHOSIS; Start 08/25/16 at 18:30 Sertraline HCl (Zoloft) 25 mg DAILY PO Last administered on 08/27/16 08:45; Start 08/27/16 at 09:00; Stop 08/27/16 at 18:17; Status DC Sertraline HCl (Zoloft) 50 mg DAILY PO Last administered on 08/31/16 08:58; Start 08/28/16 at 09:00; Stop 09/01/16 at 09:57; Status DC Quetiapine Fumarate (SEROquel) 12.5 mg TID PO Last administered on 09/09/16 09 :36; Start 08/28/16 at 21:00; Stop 09/09/16 at 11:23; Status DC Vitamin D (Vitamin D3) 50,000 unit WEEKLY PO Last administered on 09/07/16 08: 39; Start 08/31/16 at 09:00 Sertraline HCl (Zoloft) 75 mg DAILY PO Last administered on 09/09/16 09:36; Start 09/02/16 at 09:00 Buspirone HCl (Buspar) 5 mg BID PO Last administered on 09/09/16 09:37; Start 09/05/16 at 21:00; Stop 09/09/16 at 15:32; Status DC Quetiapine Fumarate (SEROquel) 12.5 mg TID@0900,1300,1700 PO Last administered on 09/09/16 16:45; Start 09/09/16 at 13:00 Buspirone HCl (Buspar) 5 mg TID PO ; Start 09/09/16 at 21:00 Active Scripts Active Reported Seroquel (Quetiapine Fumarate) 25 Mg Tablet 25 Mg PO HS Namenda (Memantine Hcl) 10 Mg Tablet 10 Mg PO BID Milk Of Magnesia (Magnesium Hydroxide) 2,400 Mg/10 Ml Oral.susp 2,400 Mg PO PRN QHS PRN Tylenol (Acetaminophen) 325 Mg Tablet 650 Mg PO PRN Q4HRS Namenda (Memantine Hcl) 10 Mg Tablet 10 Mg PO BID Melatonin 3 Mg Tab.rapdis 3 Mg PO HS Lorazepam 0.5 Mg Tablet 0.5 Mg PO PRN QID PRN Hydrocodone-Apap 5-325 (Hydrocodone Bit/Acetaminophen) 1 Each Tablet 1 Tab PO PRN Q6HRS PRN Aspir-Low (Aspirin) 81 Mg Tablet. 81 Mg PO DAILY EFRAIN GOODEN MD September 09, 2016 20:06
[2016-09-09] MEDS: MELATONIN 3 MG TABLET PO SCH (20:16)
[2016-09-10 06:20] VITALS: BP 133/75
--- NOTE | 2016-09-10 06:25 | PN ---
DATE: 09/06/2016 SUBJECTIVE: This is a late entry 09/06/2016, covers elements not covered in my initial note. The patient remains confused, not aggressive, gets a little anxious and overwhelmed with sensory stimuli, but easily redirects. REVIEW OF SYSTEMS: No CV, , eye, ENT, or pulmonary system symptoms on review. Reliability is poor. MENTAL STATUS EXAM: Oriented to himself. Insight, judgment, recent and remote memory, attention, concentration, fund of knowledge poor consistent with his diagnosis mentioned in my initial note. PLAN: Continue current psychotropics. Adjust further as clinically indicated. MAN Sindhu GOODEN MD DR: NOLA/juan f JOB#: [id number] / [id number]
--- NOTE | 2016-09-10 06:32 | PN ---
DATE: 09/07/2016 PSYCHIATRIC PROGRESS NOTE This is late entry of 09/07/2016, covers elements not covered in my initial note. SUBJECTIVE: The patient remains confused, not aggressive, otherwise pleasant. REVIEW OF SYSTEMS: No CV, , pulmonary, eye, ENT system symptoms on review. Reliability poor. MENTAL STATUS EXAMINATION: Oriented to himself. Insight, judgment, recent and remote memory, attention, concentration, fund of knowledge poor, consistent with his diagnosis mentioned in my initial note. PLAN: Continue current psychotropics, may need to increase BuSpar if anxiety resurfaces. MAN Sindhu GOODEN MD DR: NOLA/juan f JOB#: [id number] / [id number]
--- NOTE | 2016-09-10 07:19 | PN ---
DATE: 09/08/2016 PSYCHIATRIC PROGRESS NOTE This is late entry of 09/08/2016, covers elements not covered in my initial note. SUBJECTIVE: Overall, the patient has been fairly cooperative, confused. REVIEW OF SYSTEMS: No CV, , eye, ENT or pulmonary system symptoms on review. Reliability poor. MENTAL STATUS EXAMINATION: Oriented to himself. Insight, judgment, recent and remote memory, attention, concentration, fund of knowledge poor, consistent with his diagnosis mentioned in my initial note. PLAN: Continue current psychotropics, increase BuSpar to 5 mg 3 times a day, adjust further as clinically indicated. MAN Sindhu GOODEN MD DR: NOLA/juan f JOB#: [id number] / [id number]
[2016-09-10] MEDS: ASPIRIN ENTERIC COATED 81 MG TABLET.DR. PO SCH (09:14)
[2016-09-10] MEDS: busPIRone 5 MG TABLET. PO SCH ×3 (09:15→19:53)
[2016-09-10] MEDS: MEMANTINE 10 MG TABLET. PO SCH ×2 (09:15→19:53)
[2016-09-10] MEDS: QUEtiapine 25 MG TABLET. PO SCH ×4 (09:15→19:54)
[2016-09-10] MEDS: SERTRALINE 50 MG TABLET. PO SCH (09:16)
[2016-09-10] MEDS ORDERED: MAG30ORA2 PO (11:51)
[2016-09-10] MEDS ORDERED: METH57CR7 TP (11:52)
[2016-09-10] MEDS ORDERED: OLAN5TAB5 PO (11:52)
[2016-09-10] MEDS ORDERED: QUET25TA5 PO (11:53)
[2016-09-10] MEDS ORDERED: BUSP5TAB PO (11:54)
[2016-09-10] MEDS ORDERED: SERT50TA PO (11:54)
[2016-09-10 16:34] VITALS: BP 135/69
[2016-09-10] MEDS: MELATONIN 3 MG TABLET PO SCH (19:53)
--- NOTE | 2016-09-10 21:12 | PDOC ---
Exam Jesus Demential Exam: Jesus Note: Please also refer to the separate dictated note~for this date of service dictated separately.~Patient seen individually. Discussed the patient with Nursing staff reviewed the chart.~Reviewed interim history and current functioning. Reviewed vital signs,~Labs/ Radiology~and current medications noted below. Continue current treatment with the changes noted in the dictated addendum note Assessment: Vital Signs: Vital Signs Date Time Temp Pulse Resp B/P (MAP) Pulse Ox O2 Delivery O2 Flow Rate FiO2 09/10/16 16:34 97.8 81 20 135/69 (91) 98 09/09/16 16:56 Room Air I&O Intake and Output 09/10/16 07:00 Intake Total 1080 ml Balance 1080 ml Intake Oral 1080 ml # Voids 1 Current Medications: Meds: Current Medications Multi-Ingredient Ointment (Analgesic [place]) 1 holden PRN QID PRN TP MUSCLE PAIN; Start 08/25/16 at 17:15 Al Hydroxide/Mg Hydroxide (Mylanta Plus Xs) 15 ml PRN AFTMEALHC PRN PO DYSPEPSIA; Start 08/25/16 at 17:15 Acetaminophen (Tylenol) 650 mg PRN Q4HRS PRN PO PAIN/FEVER; Start 08/25/16 at 18 :15 Aspirin (Aspirin Enteric Coated) 81 mg DAILY PO Last administered on 09/10/16 09:14; Start 08/26/16 at 09:00 Acetaminophen/ Hydrocodone Bitart (Lortab 5/325) 1 tab PRN Q6HRS PRN PO PAIN Last administered on 08/30/16 17:34; Start 08/25/16 at 18:15 Lorazepam (Ativan) 0.5 mg PRN QID PRN PO ANXIETY / AGITATION Last administered on 09/01/16 21:42; Start 08/25/16 at 18:15 Memantine (Namenda) 10 mg BID PO ; Start 08/25/16 at 21:00; Status UNV Memantine (Namenda) 10 mg BID PO Last administered on 09/10/16 19:53; Start at 21:00 Quetiapine Fumarate (SEROquel) 25 mg HS PO Last administered on 09/10/16 19:54 ; Start 08/25/16 at 21:00 Magnesium Hydroxide (Milk Of Magnesia) 2,400 mg PRN QHS PRN PO CONSTIPATION Last administered on 08/25/16 20:49; Start 08/25/16 at 18:30 Melatonin 3 mg QHS PO Last administered on 09/10/16 19:53; Start 08/25/16 at 21 :00 Quetiapine Fumarate (SEROquel) 12.5 mg BID92 PO Last administered on 08/28/16 14:05; Start 08/26/16 at 09:00; Stop 08/28/16 at 18:34; Status DC Olanzapine (Zyprexa Zydis) 2.5 mg PRN Q2HR PRN PO PSYCHOSIS; Start 08/25/16 at 18:30 Sertraline HCl (Zoloft) 25 mg DAILY PO Last administered on 08/27/16 08:45; Start 08/27/16 at 09:00; Stop 08/27/16 at 18:17; Status DC Sertraline HCl (Zoloft) 50 mg DAILY PO Last administered on 08/31/16 08:58; Start 08/28/16 at 09:00; Stop 09/01/16 at 09:57; Status DC Quetiapine Fumarate (SEROquel) 12.5 mg TID PO Last administered on 09/09/16 09 :36; Start 08/28/16 at 21:00; Stop 09/09/16 at 11:23; Status DC Vitamin D (Vitamin D3) 50,000 unit WEEKLY PO Last administered on 09/07/16 08: 39; Start 08/31/16 at 09:00 Sertraline HCl (Zoloft) 75 mg DAILY PO Last administered on 09/10/16 09:16; Start 09/02/16 at 09:00 Buspirone HCl (Buspar) 5 mg BID PO Last administered on 09/09/16 09:37; Start 09/05/16 at 21:00; Stop 09/09/16 at 15:32; Status DC Quetiapine Fumarate (SEROquel) 12.5 mg TID@0900,1300,1700 PO Last administered on 09/10/16 16:05; Start 09/09/16 at 13:00 Buspirone HCl (Buspar) 5 mg TID PO Last administered on 5/23/17at 19:53; Start 09/09/16 at 21:00 Active Scripts Active Reported Buspirone Hcl 5 Mg Tablet 1 Tab PO TID Zoloft (Sertraline Hcl) 50 Mg Tablet 75 Tab PO DAILY Seroquel (Quetiapine Fumarate) 25 Mg Tablet 12.5 Mg PO TID Zyprexa Zydis (Olanzapine) 5 Mg Tab.rapdis 2.5 Mg PO PRN Q2HR PRN [place] Greaseless Cream (Methyl Salicylate/Menthol) 57 Gm Cream..g. 1 Hold[place] TP PRN QID PRN Mag-Al Plus Xs Suspension (Mag Hydrox/Al Hydrox/Simeth) 30 Ml Oral.susp 15 Ml PO PRN AFTMEALHC PRN D3-50 (Cholecalciferol (Vitamin D3)) 50,000 Unit Capsule 1 Cap PO WEEKLY Seroquel (Quetiapine Fumarate) 25 Mg Tablet 25 Mg PO HS Namenda (Memantine Hcl) 10 Mg Tablet 10 Mg PO BID Milk Of Magnesia (Magnesium Hydroxide) 2,400 Mg/10 Ml Oral.susp 2,400 Mg PO PRN QHS PRN Tylenol (Acetaminophen) 325 Mg Tablet 650 Mg PO PRN Q4HRS Namenda (Memantine Hcl) 10 Mg Tablet 10 Mg PO BID Melatonin 3 Mg Tab.rapdis 3 Mg PO HS Lorazepam 0.5 Mg Tablet 0.5 Mg PO PRN QID PRN Hydrocodone-Apap 5-325 (Hydrocodone Bit/Acetaminophen) 1 Each Tablet 1 Tab PO PRN Q6HRS PRN Aspir-Low (Aspirin) 81 Mg Tablet. 81 Mg PO DAILY EFRAIN GOODEN MD September 10, 2016 21:12
[2016-09-11 06:21] VITALS: BP 131/84
--- NOTE | 2016-09-11 08:54 | PN ---
DATE: 09/09/2016 PSYCHIATRIC PROGRESS NOTE This is a late entry for 09/09/2016, cover elements not covered in my initial note. SUBJECTIVE: The patient remains confused, withdrawn, not aggressive. REVIEW OF SYSTEMS: No CV, , eye, ENT, or pulmonary system symptoms on review. Reliability poor. MENTAL STATUS EXAM: Oriented to himself. Insight, judgment, recent and remote memory, attention, concentration, fund of knowledge poor, consistent with his diagnosis. He is quite pleasant, confused, hard of hearing, I had to talk loudly into his ear, not aggressive. IMPRESSION: Major neurocognitive disorder, Alzheimer, vascular with depression, delusion, behavioral disturbance. Rest unchanged. PLAN: BuSpar was increased on 09/07/2016 to p.o. 5 mg t.i.d. maintain, Namenda 10 b.i.d., Seroquel 12.5 t.i.d., melatonin 3 mg at bedtime, Seroquel 25 at bedtime, Ativan p.r.n., Zyprexa p.r.n., Zoloft 125 mg a day. Adjust further as clinically indicated. MAN Sindhu GOODEN MD DR: NOLA/juan f JOB#: [id number] / [id number]
[2016-09-11] MEDS: ASPIRIN ENTERIC COATED 81 MG TABLET.DR. PO SCH (09:06)
[2016-09-11] MEDS: busPIRone 5 MG TABLET. PO SCH (09:06)
[2016-09-11] MEDS: MEMANTINE 10 MG TABLET. PO SCH (09:06)
[2016-09-11] MEDS: QUEtiapine 25 MG TABLET. PO SCH (09:07)
[2016-09-11] MEDS: SERTRALINE 50 MG TABLET. PO SCH (09:07)
--- NOTE | 2016-09-12 08:07 | PN ---
DATE: 09/10/2016 This is a late entry for 09/10/2016 and covers the elements not covered in my initial note. SUBJECTIVE: The patient remains confused, withdrawn, but not aggressive. REVIEW OF SYSTEMS: Hard of hearing, I had to talk loudly into his ears. No CV, , pulmonary, eye system symptoms on review. MENTAL STATUS EXAM: Oriented to himself. Insight, judgment, recent and remote memory, attention, concentration, fund of knowledge poor, consistent with his diagnosis mentioned in my initial note. PLAN: Continue current psychotropics, Seroquel 12.5 t.i.d., Namenda 10 b.i.d., melatonin 3 mg at bedtime, Seroquel 25 at bedtime, Ativan, Zyprexa p.r.n., Zoloft 125 mg at bedtime, BuSpar 5 t.i.d., adjust further as clinically indicated. EFRAIN GOODEN MD DR: NOLA/juan f JOB#: [id number] / [id number]
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
== END 2016-09-11 11:10 | DRG 884 ==
LOC: ER 14:31 → GEROPSY 15:41
PROVIDERS: ADMIT Psychiatry & Neurology Psychiatry; ATTEND Psychiatry & Neurology Psychiatry
DX: F01.51 Vascular dementia, unspecified severity, with behavioral disturbance (principal); F02.81 Dementia in other diseases classified elsewhere, unspecified severity, with behavioral disturbance; G30.9 Alzheimer's disease, unspecified; F22 Delusional disorders; F32.9 Major depressive disorder, single episode, unspecified; F41.9 Anxiety disorder, unspecified; F63.9 Impulse disorder, unspecified; H91.90 Unspecified hearing loss, unspecified ear; I25.10 Atherosclerotic heart disease of native coronary artery without angina pectoris; Z95.0 Presence of cardiac pacemaker; Z95.5 Presence of coronary angioplasty implant and graft; Z79.899 Other long term (current) drug therapy; Z90.89 Acquired absence of other organs; Z88.0 Allergy status to penicillin; Z88.2 Allergy status to sulfonamides
CPT/HCPCS: 36415; 80048; 80053; 80061; 80076; 81001; 82306; 82607; 83036; 83540; 83550; 83735; 84436; 84443; 84480; 85027; 86592; 86593; 93005; 99285-25